=== PATIENT | female | born 1990 | race Caucasian/White ===

== ENCOUNTER 2022-11-17 11:21 | Emergency (ER) | payer OTHER, SELFPAY ==
--- NOTE | ~2022-11-17 | XR_ITS ---
EXAMINATION: XR CHEST CLINICAL INFORMATION: Cough and shortness of breath COMPARISON: None TECHNIQUE: 2 views of the chest were obtained. FINDINGS: Cardiac silhouette is normal in size. The lungs are well aerated. There is no lobar consolidation. No pleural effusion or pneumothorax. No acute osseous abnormality. XR/XR chest 2V IMPRESSION: No acute pulmonary pathology.
[2022-11-17 11:59] VITALS: BP 129/72; PULSE 97; RESP 20; TEMP 36.3; O2SAT 98; BMI 43.7
--- NOTE | 2022-11-17 12:01 | ED.ASTHMA ---
HPI - Asthma General Chief Complaint: Dyspnea <QUOC Langford Last Filed: 11/17/22 12:04> Stated Complaint: Difficulty breathing <QUOC Langford Last Filed: 11/17/22 12:04> Time Seen by Provider: 11/17/22 12:35 <QUOC Langford Last Filed: 11/17/22 12:04> History of Present Illness HPI Narrative: patient complains of runny nose, cough dry cough no sputum as well as asthma flare with wheezing several times over the last several days which was relieved with albuterol, when I saw her she had just had treatment provided here and had no shortness of breath <QUOC Liu Last Filed: 11/17/22 13:51> Related Data Home Medications: Previous Rx's Medication Instructions Recorded albuterol sulfate 90 mcg/actuation 2 puff inhalation Q4-6H PRN 11/17/22 aerosol inhaler shortness of breath or wheezing #8.5 grams prednisone 20 mg tablet 60 mg PO DAILY 4 days #12 tabs 11/17/22 <QUOC Langford Last Filed: 11/17/22 12:04> Allergies/Adverse Reactions: Allergies Allergy/AdvReac Type Severity Reaction Status Date / Time acetaminophen [From Percocet] Allergy Severe Rash Verified 11/17/22 12:03 oxycodone [From Percocet] Allergy Severe Rash Verified 11/17/22 12:03 <QUOC Langford Last Filed: 11/17/22 12:04> Review of Systems Review of Systems: positive for runny nose cough and wheezing Negatives are no fever no chills no dizziness or weakness no fainting no feeling faint no headache no sore throat no stiff neck no chest pain no shortness of breath at this moment no abdominal pain no nausea vomiting or diarrhea no calf pain or swelling no edema no skin rash <QUOC Liu Last Filed: 11/17/22 13:51> Yes all other systems are reviewed and are negative <QUOC Liu - Last Filed: 11/17/22 13:51> PMFSH Past Medical History Source: nursing notes reviewed <QUOC Liu Last Filed: 11/17/22 13:51> Social History Social History: Social History Advance Directives: No Advance Directives Information Provided: No <QUOC Langford - Last Filed: 11/17/22 12:04> Physical Exam Vital Signs: Vital Signs: Last Vital Signs Temp 97.4 F 11/17/22 11:59 Pulse 97 11/17/22 11:59 Resp 20 11/17/22 11:59 BP 129/72 11/17/22 11:59 Pulse Ox 98 11/17/22 11:59 O2 Del Method 11/17/22 11:59 BMI result Body Mass Index 43.7 <QUOC Langford - Last Filed: 11/17/22 12:04> Vital Signs: Last Vital Signs Temp 97.4 F 11/17/22 11:59 Pulse 97 11/17/22 11:59 Resp 20 11/17/22 11:59 BP 129/72 11/17/22 11:59 Pulse Ox 98 11/17/22 11:59 O2 Del Method 11/17/22 11:59 BMI result Body Mass Index 43.7 <QUOC Liu - Last Filed: 11/17/22 13:51> general appearance comfortable no acute distress Eyes no redness or discharge Pharynx no redness swelling or exudate membranes moist Neck is supple Chest clear to auscultation with full symmetric equal breath sounds bilaterally Heart no murmur Abdomen soft nontender Extremities no edema no calf tenderness or swelling Skin no rash <QUOC Liu - Last Filed: 11/17/22 13:51> Course Course Course Narrative: XU AVILA - 32-year-old female with past medical history of asthma currently residing at [facility] presenting to the ED with complaints of nasal congestion/rhinorrhea, cough with wheezing/chest tightness and shortness of breath that started yesterday. Reports that she thinks she has a sinus infection. Multiple sick contacts at the [facility] although she is unsure with what they are sick with. She denies any other symptoms related to this. She reports she will need and albuterol inhaler. Patient denies recent travel. Plan: COVID/RSV/flu swab and chest x-ray. Will order albuterol inhaler and 60 mg of p.o. prednisone. Patient is stable to go to [facility]. <QUOC Langford - Last Filed: 11/17/22 12:04> ALICIA- MARGARITA - 32-year-old female with past medical history of asthma currently residing at [facility] presenting to the ED with complaints of nasal congestion/rhinorrhea, cough with wheezing/chest tightness and shortness of breath that started yesterday. Reports that she thinks she has a sinus infection. Multiple sick contacts at the [facility] although she is unsure with what they are sick with. She denies any other symptoms related to this. She reports she will need and albuterol inhaler. Patient denies recent travel. Plan: COVID/RSV/flu swab and chest x-ray. Will order albuterol inhaler and 60 mg of p.o. prednisone. Patient is stable to go to [facility] The chest x-ray was normal, testing for RSV flu and COVID was negative Patient remained comfortable with no wheezing no shortness of breath throughout ER visit and was discharged. <QUOC Liu - Last Filed: 11/17/22 13:51> Medications Administered Discontinued Medications Generic Name Dose Route Start Last Admin Trade Name Freq PRN Reason Stop Dose Admin Albuterol Sulfate 2 puff 11/17/22 12:04 11/17/22 12:38 Albuterol Sulfate 90 Mcg 8 Gm Inhaler INHALE 11/17/22 12:05 2 puff ONCE ONE Administration Prednisone 60 mg 11/17/22 12:04 11/17/22 12:38 Prednisone 20 Mg Tablet PO 11/17/22 12:05 60 mg ONCE ONE Administration Prednisone 60 mg 11/17/22 12:46 11/17/22 13:12 Prednisone 20 Mg Tablet PO 11/17/22 12:47 Not Given ONCE ONE <QUOC Langford - Last Filed: 11/17/22 12:04> Medications Administered Discontinued Medications Generic Name Dose Route Start Last Admin Trade Name Freq PRN Reason Stop Dose Admin Albuterol Sulfate 2 puff 11/17/22 12:04 11/17/22 12:38 Albuterol Sulfate 90 Mcg 8 Gm Inhaler INHALE 11/17/22 12:05 2 puff ONCE ONE Administration Prednisone 60 mg 11/17/22 12:04 11/17/22 12:38 Prednisone 20 Mg Tablet PO 11/17/22 12:05 60 mg ONCE ONE Administration Prednisone 60 mg 11/17/22 12:46 11/17/22 13:12 Prednisone 20 Mg Tablet PO 11/17/22 12:47 Not Given ONCE ONE <QUOC Liu Last Filed: 11/17/22 13:51> Medical Decision Making Lab Data Labs: Lab Results 11/17/22 Range/Units 12:40 Influenza Type A (PCR) NEGATIVE (Negative) Influenza Type B (PCR) NEGATIVE (Negative) RSV RNA Qual (PCR) NEGATIVE (Negative) SARS-CoV-2 RNA (RT-PCR) NEGATIVE (Negative) <QUOC Langford Last Filed: 11/17/22 12:04> Lab Results 11/17/22 Range/Units 12:40 Influenza Type A (PCR) NEGATIVE (Negative) Influenza Type B (PCR) NEGATIVE (Negative) RSV RNA Qual (PCR) NEGATIVE (Negative) SARS-CoV-2 RNA (RT-PCR) NEGATIVE (Negative) <QUOC Liu Last Filed: 11/17/22 13:51> Discharge Plan Discharge Clinical Impression: Asthma, Acute upper respiratory infection <QUOC Langford Last Filed: 11/17/22 12:04> Patient Disposition: Home, Self-Care <QUOC Langford Last Filed: 11/17/22 12:04> Additional Instructions: testing for COVID flu and RSV was all negative, you likely have another of the many common viruses At this time your lungs were clear no sign of any dangerous condition now Use inhaler as needed for wheezing, we wrote for prednisone for your asthma as you been using her inhaler frequently for the past several days Return any time any difficulty breathing any worse condition any concerns <QUOC Langford Last Filed: 11/17/22 12:04> Prescriptions: New prednisone 20 mg tablet 60 mg PO DAILY 4 Days Qty: 12 0RF albuterol sulfate 90 mcg/actuation HFA aerosol inhaler 2 puff inhalation Q4-6H PRN (Reason: shortness of breath or wheezing) Qty: 8.5 0RF <QUOC Langford Last Filed: 11/17/22 12:04> Stand Alone Forms: Work/School Release <QUOC Langford Last Filed: 11/17/22 12:04>
[2022-11-17] MEDS: predniSONE 20 MG TABLET 60 MG PO (12:38)
[2022-11-17] MEDS: Albuterol Sulfate 90 MCG 8 GM INHALER 2 PUFF INHALE (12:38)
[2022-11-17 13:28] LABS: Influenza A PCR NEGATIVE (Negative); Influenza B PCR NEGATIVE (Negative); Resp Syncy Virus RNA Qual PCR NEGATIVE (Negative); SARS COV2 PCR INHOUSE NEGATIVE (Negative)
== END 2022-11-17 13:55 | disposition home or self-care (01) ==
PROVIDERS: Physician Assistant Medical; Emergency Provider Emergency Medicine
DX: J06.9 Acute upper respiratory infection, unspecified (principal); R06.02 Shortness of breath; R05.9 Cough, unspecified; J45.909 Unspecified asthma, uncomplicated; Z20.822 Contact with and (suspected) exposure to COVID-19
CPT/HCPCS: 0241U; 71046; 99283

== ENCOUNTER 2023-02-03 11:29 | Emergency (ER) | payer OTHER, SELFPAY ==
--- NOTE | ~2023-02-03 | XR_ITS ---
EXAMINATION: XR CHEST CLINICAL INFORMATION: Shortness of breath cough COMPARISON: Prior chest October 2022 TECHNIQUE: 2 views of the chest were obtained. FINDINGS: No significant abnormality is noted involving the heart, lungs, mediastinum, bony thorax or soft tissues. XR/XR chest 2V IMPRESSION: Unremarkable examination.
[2023-02-03 11:39] VITALS: BP 164/94; PULSE 100; RESP 20; TEMP 36.7; O2SAT 99; BMI 42.3
--- NOTE | 2023-02-03 11:39 | ED.SOB ---
HPI - SOB/Dyspnea General Chief Complaint: Dyspnea Stated Complaint: Diff breathing Time Seen by Provider: 02/03/23 14:03 Source: patient Mode of arrival: ambulatory Limitations: no limitations History of Present Illness HPI Narrative: 32 yo female with history of mild intermittent asthma who presents to the ER for evaluation of cough and SOB that started yesterday. She reports the shortness of breath is worse today. She is bringing up white phlegm. She states she is worried she has pneumonia because her roommate has pneumonia. She ran out of her inhaler for her asthma. She denies any fevers, chills, N/V/D, abdominal pain or chest pain. MD elicited complaint: shortness of breath and cough Pertinent past history: asthma Onset (ago): day(s) (1) Context: recent illness Timing: progressively worsening Severity: moderate Exacerbating factors: exertion and coughing Relieving factors: rest Known history of: asthma Associated symptoms: cough Treatment prior to arrival: none Related Data Home oxygen amount: none Previous Rx's Medication Instructions Recorded albuterol sulfate 90 mcg/actuation 2 puff inhalation Q4-6H PRN 11/17/22 aerosol inhaler shortness of breath or wheezing #8.5 grams prednisone 20 mg tablet 60 mg PO DAILY 4 days #12 tabs 11/17/22 albuterol sulfate 90 mcg/actuation 1 inh inhalation QID PRN shortness 02/03/23 aerosol inhaler of breath or wheezing #6.7 grams azithromycin 250 mg tablet See Rx Instructions PO .COMPLEX #6 02/03/23 (Zithromax Z-Evan) tabs benzonatate 100 mg capsule 100 mg PO TID PRN cough #20 caps 02/03/23 prednisone 20 mg tablet 40 mg PO DAILY #10 tabs 02/03/23 Allergies Allergy/AdvReac Type Severity Reaction Status Date / Time acetaminophen [From Percocet] Allergy Severe Rash Verified 11/17/22 12:03 oxycodone [From Percocet] Allergy Severe Rash Verified 11/17/22 12:03 Review of Systems Review of Systems: Yes all other systems are reviewed and are negative [facility] Social History Social History Advance Directives: No Advance Directives Information Provided: No Physical Exam Vital Signs: Vital Signs: Last Vital Signs Temp 98.1 F 02/03/23 11:39 Pulse 100 03/06/23 11:39 Resp 20 02/03/23 11:39 BP 164/94 H 02/03/23 11:39 Pulse Ox 99 02/03/23 11:39 O2 Del Method 02/03/23 11:39 BMI result Body Mass Index 42.3 Appearance: Alert. Oriented X3. No acute distress. Eyes: Pupils equal, round and reactive to light. ENT: Pharynx normal. Neck: Normal inspection. Neck supple. CVS: Normal heart rate and rhythm. Pulses normal. Respiratory: No respiratory distress. Breath sounds with inspiratory wheeze in left middle lung field Abdomen: Soft and nontender. +BS x4 Skin: Skin warm and dry. Normal skin color. Normal skin turgor. No rashes. Extremities: No lower extremity edema. No calf tenderness Neuro: Oriented X 3.Grossly normal, nonfocal Course Course Course Narrative: RME - 32 yo female with history of asthma presenting to the ER with SOB and coughing for the last 1 day, worse this morning. Roommate at home has pneumonia. No fevers but reports fatigue and not feeling well. Lungs are clear in triage with stable VS, SpO2 98% Plan: CXR and COVID swab Reevaluation(s) Reevaluation #1: CXR without PNA. COVID negative. VSS Will treat for acute bronchitis. Stable for d/c home. Medical Decision Making Differential Diagnosis Differential Diagnoses: The differential diagnosis associated with the presentation includes COVID, Flu, RSV, other viral syndrome, bronchitis, pneumonia, asthma exacerbation Lab Data MDM Lab Attestation statement: I reviewed the patient's lab results. Labs: Lab Results 02/03/23 Range/Units 13:36 COVID-19 (EVONNE) Negative (Negative) COVID-19 Clin Com See Note Independent Interpretation I performed an independent interpretation of an: Plain X-Ray Interpretation: normal exam - no pneumonia Radiology Impression Discussion of test interpretation with radiology: I have reviewed the radiologist's reading. Discharge Plan Discharge Clinical Impression: Acute bronchitis Patient Disposition: Home, Self-Care Instructions: Acute Bronchitis (ED) Additional Instructions: You tested negative for COVID Your x-ray showed no pneumonia Take the prescribed medications as directed. If you develop new or worsening symptoms call 911 or come back to the ER for further evaluation. Prescriptions: New azithromycin [Zithromax Z-Evan] 250 mg tablet See Rx Instructions .ROUTE .COMPLEX Qty: 6 0RF Rx Instructions: take 500 mg today (day 1), then 250 mg for 4 days (days 2-5) prednisone 20 mg tablet 40 mg PO DAILY Qty: 10 0RF albuterol sulfate 90 mcg/actuation HFA aerosol inhaler 1 inh inhalation QID PRN (Reason: shortness of breath or wheezing) Qty: 6.7 0RF benzonatate 100 mg capsule 100 mg PO TID PRN (Reason: cough) Qty: 20 0RF No Action prednisone 20 mg tablet 60 mg PO DAILY 4 Days Qty: 12 0RF albuterol sulfate 90 mcg/actuation HFA aerosol inhaler 2 puff inhalation Q4-6H PRN (Reason: shortness of breath or wheezing) Qty: 8.5 0RF Referrals: [place] [Primary Care Provider] - Stand Alone Forms: Work/School Release Interventions: ED Discharge Assessment Last Done: 02/03/23 14:08 Discharge Date/Time: 02/03/23 14:08
[2023-02-03 13:56] LABS: COVID-19 Test Negative (Negative); IDNOW Serial# 16C4AD1C
== END 2023-02-03 14:08 | disposition home or self-care (01) ==
PROVIDERS: Physician Assistant; Emergency Provider Emergency Medicine
DX: J20.9 Acute bronchitis, unspecified (principal); Z20.822 Contact with and (suspected) exposure to COVID-19; R06.02 Shortness of breath
CPT/HCPCS: 71046; 87635; 99282; 99283

== ENCOUNTER 2023-02-15 21:17 | Emergency (ER) | payer OTHER, SELFPAY ==
[2023-02-15 21:27] VITALS: BP 143/75; PULSE 80; RESP 16; TEMP 37; O2SAT 98
[2023-02-15 21:30] VITALS: BP 143/75; PULSE 80; RESP 16; TEMP 36; O2SAT 98; BMI 40.7
--- NOTE | 2023-02-15 22:07 | ED_ITS ---
HPI - Animal Bite General Chief Complaint: Animal Bite Stated Complaint: tick bite Time Seen by Provider: 02/15/23 22:07 Source: patient Mode of arrival: ambulatory Limitations: no limitations History of Present Illness HPI narrative: 32-year-old female who presents emergency department for evaluation of tick bite to the left posterior calf. Patient states she was hiking approximately 1 week prior. She states that over the last 1-2 days she has been having fatigue, myalgias and arthralgias. She states she has also been having headaches which are unusual for her. She states that her left foot started to get numb and she looked at her left calf today noted that there was a tick imbedded in her calf. She pulled the tick out but did not bring the tick to the emergency department. I did show her a tick panel and she initially identified the female deer tick but then she was not certain if it was the female dog tick. Related Data Previous Rx's Medication Instructions Recorded albuterol sulfate 90 mcg/actuation 2 puff inhalation Q4-6H PRN 11/17/22 aerosol inhaler shortness of breath or wheezing #8.5 grams prednisone 20 mg tablet 60 mg PO DAILY 4 days #12 tabs 11/17/22 albuterol sulfate 90 mcg/actuation 1 inh inhalation QID PRN shortness 02/03/23 aerosol inhaler of breath or wheezing #6.7 grams azithromycin 250 mg tablet See Rx Instructions PO .COMPLEX #6 02/03/23 (Zithromax Z-Evan) tabs benzonatate 100 mg capsule 100 mg PO TID PRN cough #20 caps 02/03/23 prednisone 20 mg tablet 40 mg PO DAILY #10 tabs 02/03/23 doxycycline hyclate 100 mg tablet 100 mg PO Q12H 14 days #28 tabs 02/15/23 Allergies Allergy/AdvReac Type Severity Reaction Status Date / Time oxycodone [From Percocet] Allergy Severe Rash Verified 02/15/23 21:30 Review of Systems Review of Systems: Yes all other systems are reviewed and are negative [facility] Past Medical History [facility] Narrative: Past medical history: Asthma. Social history: She denies tobacco, alcohol and drug use. Social History Social History Advance Directives: No Advance Directives Information Provided: No Physical Exam ED Vital Signs: Vital Signs - 24 hr 02/15/23 21:27 02/15/23 21:30 Temperature 98.6 F 96.8 F Pulse Rate 80 80 Respiratory Rate 16 16 Blood Pressure 143/75 H 143/75 H Pulse Oximetry 98 98 Oxygen Delivery Method Room Air Room Air BMI result Body Mass Index 40.7 General: Awake, alert, female patient, very pleasant cooperative, in no distress Evaluation of the patient's left calf does reveal a central area of dark erythema consistent with a tick bite/crater. There is approximately a 2 cm of circular erythema around the crater which is warm to the touch. Extremities otherwise unremarkable. Medications Administered Discontinued Medications Generic Name Dose Route Start Last Admin Trade Name Freq PRN Reason Stop Dose Admin Doxycycline Monohydrate 100 mg 02/15/23 22:17 02/15/23 22:24 Doxycycline Monohydrate 100 Mg Capsule PO 02/15/23 22:18 100 mg ONCE ONE Administration Medical Decision Making Medical Decision Making MDM Narrative: 32-year-old female who presents emergency department for evaluation of a tick bite. Based on her history, the tick may have been in bed and into her left calf for approximately 1 week. The patient did have systemic symptoms such as fatigue, myalgias, arthralgias and headache. She denied fever or chills. The patient initially identify the female deer tick but then was not certain and thought that may have been a female dog tick. Given the fact that she has had a tick imbedded for 1 week, she has systemic symptoms, concerned that she might have Lyme disease versus cellulitis. At this time, I do not think patient needs to be tested for Lyme disease or anaplasmosis since she is going to be treated with doxycycline. I prescribed doxycycline 100 mg every 12 hours for 14 days. She was given her 1st dose of doxycycline here in the emergency department. She was given printed and verbal instructions and discharged home. Differential Diagnosis Differential diagnosis includes was not limited to Lyme disease, cellulitis, anaplasmosis, viral syndrome Discharge Plan Discharge Clinical Impression: Cellulitis of left leg Tick bite Qualifiers: Encounter type: initial encounter Site of tick bite: lower leg Patient Disposition: Home, Self-Care Instructions: Cellulitis (ED), Tick Bite (ED) Additional Instructions: You do have a skin infection in the area of the tick bite. I am also concerned that she may have Lyme disease. The treatment for the skin infection and Lyme disease is the same except the course of antibiotics as longer for Lyme disease. Take doxycycline 100 mg pills, 1 pill every 12 hours for 14 days. Apply heating pad on low to your calf area for 15 minutes 4 to 6 times a day for the next 3 days. Heat will increase the blood flow to the area help fight off the infection. Take ibuprofen 200 mg pills, 2 pills every 6 hours as needed for pain. Take Tylenol (acetaminophen) 500 mg pills, 2 pills every 6 hours as needed for pain. Follow-up with your doctor in 2 days. Please return to the emergency department if your symptoms get worse or if you develop any symptoms that are concerning to you. Prescriptions: New doxycycline hyclate 100 mg tablet 100 mg PO Q12H 14 Days Qty: 28 0RF No Action azithromycin [Zithromax Z-Evan] 250 mg tablet See Rx Instructions .ROUTE .COMPLEX Qty: 6 0RF Rx Instructions: take 500 mg today (day 1), then 250 mg for 4 days (days 2-5) prednisone 20 mg tablet 40 mg PO DAILY Qty: 10 0RF albuterol sulfate 90 mcg/actuation HFA aerosol inhaler 1 inh inhalation QID PRN (Reason: shortness of breath or wheezing) Qty: 6.7 0RF benzonatate 100 mg capsule 100 mg PO TID PRN (Reason: cough) Qty: 20 0RF prednisone 20 mg tablet 60 mg PO DAILY 4 Days Qty: 12 0RF albuterol sulfate 90 mcg/actuation HFA aerosol inhaler 2 puff inhalation Q4-6H PRN (Reason: shortness of breath or wheezing) Qty: 8.5 0RF
[2023-02-15] MEDS: Doxycycline Monohydrate 100 MG CAPSULE PO (22:24)
== END 2023-02-15 22:35 | disposition home or self-care (01) ==
PROVIDERS: Emergency Provider Emergency Medicine Emergency Medical Services; PCP Internal Medicine
DX: L03.116 Cellulitis of left lower limb (principal); S80.862A Insect bite (nonvenomous), left lower leg, initial encounter; W57.XXXA Bitten or stung by nonvenomous insect and other nonvenomous arthropods, initial encounter; Y93.9 Activity, unspecified; Y92.9 Unspecified place or not applicable; Y99.9 Unspecified external cause status
CPT/HCPCS: 99282; 99283

== ENCOUNTER 2023-04-29 10:26 | Emergency (ER) | payer OTHER, SELFPAY ==
[2023-04-29 10:35] VITALS: BP 133/74; PULSE 98; RESP 16; TEMP 37.1; O2SAT 94; BMI 42.5
[2023-04-29 10:54] LABS: IDNOW Serial# 6674DD1D; Strep A Nucleic Acid Negative (Negative)
[2023-04-29] MEDS: Albuterol/Iprat 2.5/0.5MG 3 ML AMPUL.NEB INHALE (11:37)
[2023-04-29 11:42] VITALS: PULSE 98; RESP 16; O2SAT 94
[2023-04-29 11:58] LABS: MANUAL DIFF FLAG NO
[2023-04-29 12:00] LABS: Basophils Percent Auto 0.4 % (0-2); Eosinophils Absolute Auto 0.3 X10*3/uL (0.0-0.4); Eosinophils Percent Auto 2.5 % (0-4); Hematocrit 38.9 % (37.0-47.0); Hemoglobin 12.3 g/dl (12.0-16.0); Imm Gran Abs Auto 0.04 X10*3/uL (0.00-0.03); Imm Gran Pct Auto 0.4 % (0.0-0.4); Lymphocytes Percent Auto 28.2 % (20-40); Mean Corpuscular HGB Conc 31.6 g/dl (31.0-35.0); Mean Corpuscular Hemoglobin 27.1 pg (27.0-33.0); Mean Corpuscular Volume 85.7 fL (80.0-98.0); Mean Platelet Volume 9.7 fL (9.4-12.3); Monocytes Absolute Auto 0.6 X10*3/uL (0.1-1.2); Neutrophils Absolute Auto 6.6 x10*3/uL (2.0-8.3); Neutrophils Percent Auto 62.5 % (45-73); Platelet Count 320 X10*3/uL (160-400); Red Blood Count 4.54 X10*6/uL (4.20-5.50); Red Cell Distribution Width 14.6 % (11.0-16.0); White Blood Count 10.6 X10*3/uL (4.8-10.8)
[2023-04-29] MEDS: 0.9 % Sodium Chloride 1,000 ML 999 ML IVCONT (12:04)
[2023-04-29] MEDS: Acetaminophen 325 MG TABLET 975 MG PO (12:05)
[2023-04-29] MEDS: Ketorolac Tromethamine 30 MG/ML VIAL IVPUSH (12:05)
[2023-04-29] MEDS: dexAMETHasone sod phosphate 10 MG/ML VIAL IVPUSH (12:05)
[2023-04-29 13:00] LABS: Anion Gap 14 (12-20); Blood Urea Nitrogen 8 mg/dL (9-16); Calcium 9.5 mg/dL (8.4-10.2); Carbon Dioxide 25 mmol/L (22-29); Chloride 109 mmol/L (96-108); Creatinine Clr Calc Pharmacy 136.5; Estimated Glomerular Filt Rate > 60; Glucose Random 88 mg/dL (60-115); Potassium 4.1 mmol/L (3.3-5.1); Sodium 144 mmol/L (135-145)
[2023-04-29 13:01] LABS: Monotest Negative (Negative)
--- NOTE | 2023-04-29 13:43 | ED.URI ---
HPI - URI/Sore Throat General Chief Complaint: Upper Respiratory Symptoms Stated Complaint: Sore throat Time Seen by Provider: 04/29/23 11:25 History of Present Illness HPI Narrative: patient complains of sore throat over the fast few days making it painful to swallow but she was able to swallow as well as some wheezing for past 2 days and feeling of chest tightness She has no headache no stiff neck no chest pain no sputum no cough, no abdominal pain no nausea vomiting or diarrhea no dysuria no leg swelling no calf pain or swelling no skin rash Related Data Previous Rx's Medication Instructions Recorded albuterol sulfate 90 mcg/actuation 2 puff inhalation Q4-6H PRN 11/17/22 aerosol inhaler shortness of breath or wheezing #8.5 grams prednisone 20 mg tablet 60 mg PO DAILY 4 days #12 tabs 11/17/22 albuterol sulfate 90 mcg/actuation 1 inh inhalation QID PRN shortness 02/03/23 aerosol inhaler of breath or wheezing #6.7 grams azithromycin 250 mg tablet See Rx Instructions PO .COMPLEX #6 02/03/23 (Zithromax Z-Evan) tabs benzonatate 100 mg capsule 100 mg PO TID PRN cough #20 caps 02/03/23 prednisone 20 mg tablet 40 mg PO DAILY #10 tabs 02/03/23 doxycycline hyclate 100 mg tablet 100 mg PO Q12H 14 days #28 tabs 02/15/23 albuterol sulfate 90 mcg/actuation 2 puff inhalation Q4-6H PRN 04/29/23 aerosol inhaler shortness of breath or wheezing #8.5 grams ibuprofen 600 mg tablet 600 mg PO Q6H PRN fever or pain 04/29/23 #20 tabs penicillin V potassium 500 mg 500 mg PO BID 10 days #20 tabs 04/29/23 tablet prednisone 20 mg tablet 60 mg PO DAILY 4 days #12 tabs 04/29/23 Allergies Allergy/AdvReac Type Severity Reaction Status Date / Time oxycodone [From Percocet] Allergy Severe Rash Verified 02/15/23 21:30 [facility] Past Medical History Source: nursing notes reviewed Social History Social History Advance Directives: No Advance Directives Information Provided: No Physical Exam Vital Signs: Vital Signs: Last Vital Signs Temp 98.7 F 04/29/23 10:35 Pulse 98 04/29/23 11:42 Resp 16 04/29/23 11:42 BP 133/74 04/29/23 10:35 Pulse Ox 94 04/29/23 10:35 O2 Del Method Room Air 04/29/23 10:35 BMI result Body Mass Index 42.5 General appearance is no acute distress Eyes no redness or discharge The sinuses not tender The pharynx had redness bilateral symmetric tonsillar swelling with exudate, uvula was midline, voice was hoarse, membranes were mildly dry Neck was supple Chest had bilateral scant wheezes but good air entry Heart no murmur Abdomen soft nontender Extremities no edema no calf tenderness or swelling Skin no rash Course Course Course Narrative: patient was given a L of fluids Decadron and Toradol as well as a nebulizer treatment for her wheezing Her breathing felt much better and she feels like she is breathing normally She has no throat pain any more and is easily tolerating p.o., well-appearing patient with out throat pain or wheezing, tolerating p.o. easily breathing comfortably is discharged CBC and chemistry were checked without significant abnormality, COVID test was negative Medications Administered Discontinued Medications Generic Name Dose Route Start Last Admin Trade Name Freq PRN Reason Stop Dose Admin Acetaminophen 975 mg 04/29/23 11:33 04/29/23 12:05 Acetaminophen 325 Mg Tablet PO 04/29/23 11:34 975 mg ONCE ONE Administration Albuterol/Ipratropium 3 ml 04/29/23 11:32 04/29/23 11:37 Albuterol/Iprat 2.5/0.5mg 3 Ml Ampul.Neb INHALE 04/29/23 11:33 3 ml ONCE ONE Administration Dexamethasone Sodium Phosphate 10 mg 04/29/23 11:33 04/29/23 12:05 Dexamethasone Sod Phosphate 10 Mg/Ml Vial IVPUSH 04/29/23 11:34 10 mg ONCE ONE Administration Sodium Chloride 1,000 mls @ 999 mls/hr 04/29/23 11:45 04/29/23 13:53 Ns IVCONT 04/29/23 12:45 Infused .Q1H1M YOSHI Infusion Ketorolac Tromethamine 30 mg 04/29/23 11:33 04/29/23 12:05 Ketorolac Tromethamine 30 Mg/Ml Vial IVPUSH 04/29/23 11:34 30 mg ONCE ONE Administration Medical Decision Making Lab Data 04/29/23 11:54 04/29/23 12:30 Labs: Lab Results 04/29/23 04/29/23 04/29/23 Range/Units 10:38 11:54 12:30 WBC 10.6 (4.8-10.8) X10*3/uL RBC 4.54 (4.20-5.50) X10*6/uL Hgb 12.3 (12.0-16.0) g/dl Hct 38.9 (37.0-47.0) % MCV 85.7 (80.0-98.0) fL MCH 27.1 (27.0-33.0) pg MCHC 31.6 (31.0-35.0) g/dl RDW 14.6 (11.0-16.0) % Plt Count 320 (160-400) X10*3/uL MPV 9.7 (9.4-12.3) fL Immature Gran % (Auto) 0.4 (0.0-0.4) % Neut % (Auto) 62.5 (45-73) % Lymph % (Auto) 28.2 (20-40) % [place] % (Auto) 6.0 (2-11) % Eos % (Auto) 2.5 (0-4) % Baso % (Auto) 0.4 (0-2) % Lymph # (Auto) 3.0 (1.2-4.9) X10*3/uL [place] # (Auto) 0.6 (0.1-1.2) X10*3/uL Eos # (Auto) 0.3 (0.0-0.4) X10*3/uL Baso # (Auto) 0.0 (0.0-0.2) X10*3/uL Abs Immat Gran (auto) 0.04 H (0.00-0.03) X10*3/uL Absolute Neuts (auto) 6.6 (2.0-8.3) x10*3/uL Absolute Nucleated RBC 0.000 (0.0-0.012) X10*3/uL Nucleated RBC % (auto) 0.0 (0.0-0.2) /100WBC Sodium (135-145) mmol/L Potassium (3.3-5.1) mmol/L Chloride (96-108) mmol/L Carbon Dioxide (22-29) mmol/L Anion Gap (12-20) BUN (9-16) mg/dL Creatinine (0.5-1.4) mg/dL Estim Creat Clear Calc Estimated GFR Random Glucose (60-115) mg/dL Calcium (8.4-10.2) mg/dL Monoscreen Negative (Negative) S. pyogenes GrpA KATHLEEN Negative (Negative) 04/29/23 Range/Units 12:30 WBC (4.8-10.8) X10*3/uL RBC (4.20-5.50) X10*6/uL Hgb (12.0-16.0) g/dl Hct (37.0-47.0) % MCV (80.0-98.0) fL MCH (27.0-33.0) pg MCHC (31.0-35.0) g/dl RDW (11.0-16.0) % Plt Count (160-400) X10*3/uL MPV (9.4-12.3) fL Immature Gran % (Auto) (0.0-0.4) % Neut % (Auto) (45-73) % Lymph % (Auto) (20-40) % [place] % (Auto) (2-11) % Eos % (Auto) (0-4) % Baso % (Auto) (0-2) % Lymph # (Auto) (1.2-4.9) X10*3/uL [place] # (Auto) (0.1-1.2) X10*3/uL Eos # (Auto) (0.0-0.4) X10*3/uL Baso # (Auto) (0.0-0.2) X10*3/uL Abs Immat Gran (auto) (0.00-0.03) X10*3/uL Absolute Neuts (auto) (2.0-8.3) x10*3/uL Absolute Nucleated RBC (0.0-0.012) X10*3/uL Nucleated RBC % (auto) (0.0-0.2) /100WBC Sodium 144 (135-145) mmol/L Potassium 4.1 (3.3-5.1) mmol/L Chloride 109 H (96-108) mmol/L Carbon Dioxide 25 (22-29) mmol/L Anion Gap 14 (12-20) BUN 8 L (9-16) mg/dL Creatinine 0.70 (0.5-1.4) mg/dL Estim Creat Clear Calc 136.5 Estimated GFR > 60 Random Glucose 88 (60-115) mg/dL Calcium 9.5 (8.4-10.2) mg/dL Monoscreen (Negative) S. pyogenes GrpA KATHLEEN (Negative) Discharge Plan Discharge Clinical Impression: Pharyngitis Patient Disposition: Home, Self-Care Additional Instructions: testing was negative for strep and mono But as your throat has the appearance of strep throat if symptoms are not gone with the treatment you received today it is okay to take penicillin for possibility that the test missed strep throat We treated her wheezing with albuterol and wheezing was gone so we are treating the asthma with prednisone for several more days and a prescription for an inhaler Return any time any worse condition or concerns, make sure you stay well hydrated drink plenty of fluids, honey and warm fluids are often helpful Prescriptions: New albuterol sulfate 90 mcg/actuation HFA aerosol inhaler 2 puff inhalation Q4-6H PRN (Reason: shortness of breath or wheezing) Qty: 8.5 0RF prednisone 20 mg tablet 60 mg PO DAILY 4 Days Qty: 12 0RF penicillin V potassium 500 mg tablet 500 mg PO BID 10 Days Qty: 20 0RF ibuprofen 600 mg tablet 600 mg PO Q6H PRN (Reason: fever or pain) Qty: 20 0RF No Action azithromycin [Zithromax Z-Evan] 250 mg tablet See Rx Instructions .ROUTE .COMPLEX Qty: 6 0RF Rx Instructions: take 500 mg today (day 1), then 250 mg for 4 days (days 2-5) prednisone 20 mg tablet 40 mg PO DAILY Qty: 10 0RF albuterol sulfate 90 mcg/actuation HFA aerosol inhaler 1 inh inhalation QID PRN (Reason: shortness of breath or wheezing) Qty: 6.7 0RF benzonatate 100 mg capsule 100 mg PO TID PRN (Reason: cough) Qty: 20 0RF prednisone 20 mg tablet 60 mg PO DAILY 4 Days Qty: 12 0RF albuterol sulfate 90 mcg/actuation HFA aerosol inhaler 2 puff inhalation Q4-6H PRN (Reason: shortness of breath or wheezing) Qty: 8.5 0RF doxycycline hyclate 100 mg tablet 100 mg PO Q12H 14 Days Qty: 28 0RF Interventions: ED Discharge Assessment Last Done: 04/29/23 13:53 Discharge Date/Time: 04/29/23 13:59
--- NOTE | 2023-04-29 13:53 | PC.NURSE ---
pt a&ox4, vss, reporting reduction in pain.
== END 2023-04-29 13:59 | disposition home or self-care (01) ==
PROVIDERS: Physician Assistant Medical; Emergency Provider Emergency Medicine
DX: J02.9 Acute pharyngitis, unspecified (principal); R06.2 Wheezing
CPT/HCPCS: 36415; 80048; 85025; 86308; 87651; 96361; 96374; 96375; 99284; J1100; J1885

== ENCOUNTER 2023-06-19 16:08 | Emergency (ER) | payer OTHER, SELFPAY ==
--- NOTE | ~2023-06-19 | XR_ITS ---
EXAMINATION: XR FINGER, RIGHT CLINICAL INFORMATION: Right palm pain COMPARISON: None available. TECHNIQUE: 3 views of the right: thumb. FINDINGS: The bones and soft tissues are normal. No fracture. Alignment is anatomic. Joint spaces are maintained. XR/XR finger RT min 2V IMPRESSION: Normal finger radiographs.
[2023-06-19 16:32] VITALS: BP 117/77; PULSE 78; RESP 18; TEMP 36.6; O2SAT 98; BMI 43.1
--- NOTE | 2023-06-19 16:58 | ED_ITS ---
HPI - General Adult General Chief complaint: Wound/Laceration Stated complaint: Laceration to right thumb 2 days ago Time Seen by Provider: 06/19/23 17:53 Source: patient Mode of arrival: ambulatory Limitations: no limitations History of Present Illness HPI narrative: 32-year-old female presenting to the ER with complaints of a laceration while she was slicing potatoes 2 days ago with a mandoline and she unfortunately lacerated her finger Along with the distal aspect of her nail. She reports she is unsure if she is up-to-date on tetanus. She denies any bony tenderness, thoughts of foreign bodies, surrounding erythema, redness going up her arm, weakness or any other symptoms complaints or concerns at this time. complaint: Old laceration to right 1st digit /thumb Onset (ago): day(s) (2) Related Data Previous Rx's Medication Instructions Recorded albuterol sulfate 90 mcg/actuation 2 puff inhalation Q4-6H PRN 11/17/22 aerosol inhaler shortness of breath or wheezing #8.5 grams prednisone 20 mg tablet 60 mg PO DAILY 4 days #12 tabs 11/17/22 albuterol sulfate 90 mcg/actuation 1 inh inhalation QID PRN shortness 02/03/23 aerosol inhaler of breath or wheezing #6.7 grams azithromycin 250 mg tablet See Rx Instructions PO .COMPLEX #6 02/03/23 (Zithromax Z-Evan) tabs benzonatate 100 mg capsule 100 mg PO TID PRN cough #20 caps 02/03/23 prednisone 20 mg tablet 40 mg PO DAILY #10 tabs 02/03/23 doxycycline hyclate 100 mg tablet 100 mg PO Q12H 14 days #28 tabs 02/15/23 albuterol sulfate 90 mcg/actuation 2 puff inhalation Q4-6H PRN 04/29/23 aerosol inhaler shortness of breath or wheezing #8.5 grams ibuprofen 600 mg tablet 600 mg PO Q6H PRN fever or pain 04/29/23 #20 tabs penicillin V potassium 500 mg 500 mg PO BID 10 days #20 tabs 04/29/23 tablet prednisone 20 mg tablet 60 mg PO DAILY 4 days #12 tabs 04/29/23 Allergies Allergy/AdvReac Type Severity Reaction Status Date / Time oxycodone [From Percocet] Allergy Severe Rash Verified 06/19/23 16:32 Review of Systems Review of Systems: Constitutional : No Fever, No Chills, Cardiovascular : No Chest Pain, No SOB Respiratory : No Dyspnea Gastrointestinal : No abdominal pain Musculoskeletal : No Joint Swelling Skin : positive skin laceration, No Foreign bodies, No rash, No surrounding erythema Neuro : No Weakness, No Numbness/tingling Psych : No SI/HI/thoughts of self injury Yes all other systems are reviewed and are negative [facility] Past Medical History Attestation statement: The following information was validated with the patient. Source: old records reviewed and nursing notes reviewed Social History Social History Advance Directives: No Advance Directives Information Provided: Yes Physical Exam ED Vital Signs: Vital Signs - 24 hr 06/19/23 16:32 Temperature 97.8 F Pulse Rate 78 Respiratory Rate 18 Blood Pressure 117/77 Pulse Oximetry 98 Oxygen Delivery Method Room Air BMI result Body Mass Index 43.1 vital signs have been reviewed as normal and appeared to be correct. Blood pressure normal. Heart rate normal. Respiration rate normal. Temperature normal. Oxygen saturation normal. Appearance: Alert. Oriented X3. No acute distress. Head: Normal external exam. Normocephalic. Atraumatic. Eyes: PERRLA. EOMI. Conjunctiva and sclera normal. Eyelids normal. ENT: Pharynx normal. Uvula midline. Moist mucous membranes. Normal voice. No trismus noted. No drooling noted. No muffled voice noted. Neck: Normal inspection. Neck supple. FROM. No adenopathy. No crepitus is noted. No meningeal signs. CVS: Normal heart rate and rhythm. Pulses normal throughout. Respiratory: No respiratory distress. Painless inspiration. Back: Full range of motion noted. Skin: Skin warm and dry. Normal skin color. Normal skin turgor. No rashes/lesions/lacerations noted. Extremities: right hand thumb/ 1st digit at the distal aspect near the distal aspect of the nail radial aspect patient has an old laceration with well-healing scab. No surrounding erythema /streaking/ induration or fluctuance. No subungual hematoma noted. No obvious ligamentous or tendon injury noted. No obvious nerve damage. Otherwise all of Extremities exhibit normal range of motion and nontender. Neuro: Oriented X 3. No motor deficit. No sensory deficit. Reflexes normal. Normal steady gait. No focal neuro deficits noted. CN's II-XII intact bilaterally? Vascular: + radial pulses Normal cap refill. No cyanosis noted to upper extremity nails Course Course Course Narrative: This is an RME: Additional HPI, ROS, PE not included below will be deferred to primary provider. This is a 32 [id number] presenting to the Er with complaints of laceration to her right thumb on a mandolin 2 days ago. No fevers or chills. She banged her thumb again today. Admitting pain and decreased sensation to the tip of her right thumb. Unsure last tdap. Appears to be healing. Plan: Right thumb xray Reevaluation(s) Reevaluation #1: patient with no laceration to right hand 1st digit/ thumb that occurred 2 days ago. She is unsure if she is up-to-date on tetanus therefore will be updated at this time. On exam there is a well-healing scab no surrounding erythema. Not consistent with septic joint. Not consistent with tenosynovitis. Not consistent with obvious ligamentous or tendon injury. Not consistent muscle rupture. The injury does not involve the nail bed. Therefore will update the patient's tetanus at this time patient will be discharged with instructions return if any new or worsening symptoms follow up with primary care provider. Patient understands agrees with this plan. Time: 18:23 Medical Decision Making Medical Decision Making MDM Narrative: see course Differential Diagnosis Differential Diagnoses: The differential diagnosis associated with the presentation includes see course Independent Interpretation I performed an independent interpretation of an: Plain X-Ray ( X-ray of right hand reviewed by myself this is my independent interpretation agreeable with radiologist reports) Radiology Impression Discussion of test interpretation with radiology: I have reviewed the radiologist's reading. Radiologist Impression: FINDINGS: The bones and soft tissues are normal. No fracture. Alignment is anatomic. Joint spaces are maintained.? XR/XR finger RT min 2V IMPRESSION: Normal finger radiographs. External Record Review External record reviewed: Inpatient record, Office record, Outpatient record, Prior outpatient labs, Prior outpatient radiology, Primary care record and Outside ED record all prior labs/imaging /EKG and knows that are accessible in our system reviewed by myself Social Determinants Patient?s care significantly limited by Social Determinants of Health including: Low income and Other Social Determinant of Health Discharge Plan Discharge Clinical Impression: Laceration of finger Patient Disposition: Home, Self-Care Instructions: Finger Laceration (ED) Prescriptions: No Action azithromycin [Zithromax Z-Evan] 250 mg tablet See Rx Instructions .ROUTE .COMPLEX Qty: 6 0RF Rx Instructions: take 500 mg today (day 1), then 250 mg for 4 days (days 2-5) prednisone 20 mg tablet 40 mg PO DAILY Qty: 10 0RF albuterol sulfate 90 mcg/actuation HFA aerosol inhaler 1 inh inhalation QID PRN (Reason: shortness of breath or wheezing) Qty: 6.7 0RF benzonatate 100 mg capsule 100 mg PO TID PRN (Reason: cough) Qty: 20 0RF prednisone 20 mg tablet 60 mg PO DAILY 4 Days Qty: 12 0RF albuterol sulfate 90 mcg/actuation HFA aerosol inhaler 2 puff inhalation Q4-6H PRN (Reason: shortness of breath or wheezing) Qty: 8.5 0RF doxycycline hyclate 100 mg tablet 100 mg PO Q12H 14 Days Qty: 28 0RF albuterol sulfate 90 mcg/actuation HFA aerosol inhaler 2 puff inhalation Q4-6H PRN (Reason: shortness of breath or wheezing) Qty: 8.5 0RF prednisone 20 mg tablet 60 mg PO DAILY 4 Days Qty: 12 0RF penicillin V potassium 500 mg tablet 500 mg PO BID 10 Days Qty: 20 0RF ibuprofen 600 mg tablet 600 mg PO Q6H PRN (Reason: fever or pain) Qty: 20 0RF Referrals: Po,Dell Madrigal MD [Primary Care Provider] - 2 days
[2023-06-19] MEDS: Diphth,Pertus(ACell),Tet Adult 0.5 ML SYRINGE IM (18:29)
== END 2023-06-19 18:39 | disposition home or self-care (01) ==
PROVIDERS: Emergency Provider Emergency Medicine; PCP Internal Medicine
DX: S61.111A Laceration without foreign body of right thumb with damage to nail, initial encounter (principal); W26.0XXA Contact with knife, initial encounter; Y93.G1 Activity, food preparation and clean up; Y92.010 Kitchen of single-family (private) house as the place of occurrence of the external cause; Y99.9 Unspecified external cause status
CPT/HCPCS: 73140; 90471; 90715; 99282; 99284

== ENCOUNTER 2023-07-07 18:06 | Inpatient (IN) | payer OTHER, SELFPAY ==
--- NOTE | 2023-07-07 18:15 | ECG_ITS ---
Test Reason : medical clearance Blood Pressure : / mmHG Vent. Rate : 075 BPM Atrial Rate : 075 BPM P-R Int : 128 ms QRS Dur : 082 ms QT Int : 384 ms P-R-T Axes : 051 085 026 degrees QTc Int : 428 ms Normal sinus rhythm with sinus arrhythmia Normal ECG No previous ECGs available Referred By: Lisa Caldwell Electronically Signed By:Vinicio Rucker
[2023-07-07 18:31] VITALS: RESP 18; BMI 42.5
[2023-07-07 18:40] VITALS: BP 117/68; PULSE 88; RESP 18; TEMP 36.3; O2SAT 96
--- NOTE | 2023-07-07 18:41 | PC.NURSE ---
Alert and oriented, arrived from resident treatment home that patient has been at for 1 year. 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 Reports has been depressed and was started on abilify about 1 week ago and started having thoughts of SI yesterday. States having intrusive thoughts about stepping out into traffic to end her life. States had similar thought 1 year ago. Denies HI.
--- NOTE | 2023-07-07 18:54 | ED_ITS ---
HPI - Psych General Chief Complaint: Psychiatric Symptoms Stated Complaint: SI WITH PLAN Time Seen by Provider: 07/07/23 18:19 Source: patient Mode of arrival: ambulatory Limitations: no limitations History of Present Illness HPI Narrative: Patient with history of depression came from his attention facility for in creased depression with SI feeling noncompliant to her medication which she was taking in the morning. History of suicidal attempts in the past+ Related Data Home Medications Medication Instructions Recorded Confirmed aripiprazole 2 mg tablet 2 mg PO DAILY 07/07/23 07/07/23 hydroxyzine HCl 25 mg tablet 25 mg PO TID PRN Anxiety 07/07/23 07/07/23 oxcarbazepine 150 mg tablet 150 mg PO BID 07/07/23 07/07/23 prazosin 2 mg capsule 2 mg PO BEDTIME 07/07/23 07/07/23 sertraline 25 mg tablet 25 mg PO BEDTIME 07/07/23 07/07/23 trazodone 100 mg tablet 100 mg PO BEDTIME 07/07/23 07/07/23 Previous Rx's Medication Instructions Recorded albuterol sulfate 90 mcg/actuation 2 puff inhalation Q4-6H PRN 04/29/23 aerosol inhaler shortness of breath or wheezing #8.5 grams Allergies Allergy/AdvReac Type Severity Reaction Status Date / Time oxycodone [From Percocet] Allergy Severe Rash Verified 06/19/23 16:32 gluten Allergy Rash Verified 07/07/23 19:16 Review of Systems Review of Systems: Yes all other systems are reviewed and are negative [facility] Social History Social History Alcohol intake: former Smoked in Last 30 Days: No Use of substances other than those prescribed or required for medical reasons: No Advance Directives: No Advance Directives Information Provided: No Physical Exam Vital Signs: Vital Signs: Last Vital Signs Temp 98.2 F 07/08/23 01:01 Pulse 73 07/08/23 01:01 Resp 17 07/08/23 01:01 BP 99/54 L 07/08/23 01:01 Pulse Ox 98 07/08/23 01:01 O2 Del Method Room Air 07/08/23 01:01 BMI result Body Mass Index 42.5 Appearance: Alert. Oriented X3. No acute distress. Eyes: PERRLA, No Nystagmus ENT: Pharynx normal. Oral Mucosa moist Neck: Normal inspection. Neck supple. CVS: Normal heart rate and rhythm. Pulses normal. Respiratory: No respiratory distress. Equal air entry bilateral, no wheezing/rales/rhonchi Abdomen: Soft and nontender. Bowel sounds are present, no mass palpable, no CVA tenderness Skin: Skin warm and dry. Normal skin color. Normal skin turgor. Extremities: No lower extremity edema. No calf tenderness psych: Depressed denies current SI or HI no hallucinations or delusion Neuro: Oriented X 3. No motor deficit. No sensory deficit.No cerebellar signs , cranial nerves II-XII intact Medical Decision Making Medical Decision Making MDM Narrative: Patient has significant depression SI feeling get care team to evaluate the patient Lab Data 07/07/23 20:56 07/07/23 17:15 Labs: Lab Results 07/07/23 07/07/23 07/07/23 Range/Units 17:15 17:15 19:17 WBC (4.8-10.8) X10*3/uL RBC (4.20-5.50) X10*6/uL Hgb (12.0-16.0) g/dl Hct (37.0-47.0) % MCV (80.0-98.0) fL MCH (27.0-33.0) pg MCHC (31.0-35.0) g/dl RDW (11.0-16.0) % Plt Count (160-400) X10*3/uL MPV (9.4-12.3) fL Immature Gran % (Auto) (0.0-0.4) % Neut % (Auto) (45-73) % Lymph % (Auto) (20-40) % [place] % (Auto) (2-11) % Eos % (Auto) (0-4) % Baso % (Auto) (0-2) % Lymph # (Auto) (1.2-4.9) X10*3/uL [place] # (Auto) (0.1-1.2) X10*3/uL Eos # (Auto) (0.0-0.4) X10*3/uL Baso # (Auto) (0.0-0.2) X10*3/uL Abs Immat Gran (auto) (0.00-0.03) X10*3/uL Absolute Neuts (auto) (2.0-8.3) x10*3/uL Absolute Nucleated RBC (0.0-0.012) X10*3/uL Nucleated RBC % (auto) (0.0-0.2) /100WBC Sodium 142 (135-145) mmol/L Potassium 4.5 (3.3-5.1) mmol/L Chloride 108 (96-108) mmol/L Carbon Dioxide 22 (22-29) mmol/L Anion Gap 17 (12-20) BUN 9 (9-16) mg/dL Creatinine 0.70 (0.5-1.4) mg/dL Estim Creat Clear Calc 135.2 Estimated GFR > 60 Random Glucose 127 H (60-115) mg/dL Calcium 9.1 (8.4-10.2) mg/dL Total Bilirubin 0.1 (0.0-1.0) mg/dL AST 20 (5-31) U/L ALT 16 (0-31) U/L Alkaline Phosphatase 101 (39-117) U/L Total Protein 7.2 (6.5-8.0) g/dL Albumin 4.1 (3.5-5.0) g/dL Urine Color Urine Appearance Urine pH (5.0-9.0) Ur Specific [place] (1.005-1.025) Urine Protein (Neg-Trace) mg/dL Urine Glucose (UA) (Negative) mg/dL Urine Ketones (Negative) mg/dL Urine Blood (Negative) Urine Nitrite (Negative) Ur Leukocyte Esterase (Negative) Urine Test NEGATIVE (NEGATIVE) Salicylates (15-30) mg/dL Urine Opiates Screen (Not Detect) Urine Fentanyl Screen (Not Detect) Acetaminophen (<30) mcg/mL Ur Barbiturates Screen (Not Detect) Ur Phencyclidine Scrn (Not Detect) Ur Amphetamines Screen (Not Detect) U Benzodiazepines Scrn (Not Detect) Urine Cocaine Screen (Not Detect) U Marijuana (THC) Screen (Not Detect) Ethyl Alcohol < 10 mg/dL COVID-19 (EVONNE) Negative (Negative) COVID-19 Clin Com See Note 07/07/23 07/07/23 07/07/23 Range/Units 19:42 19:42 20:56 WBC 9.3 (4.8-10.8) X10*3/uL RBC 4.70 (4.20-5.50) X10*6/uL Hgb 12.7 (12.0-16.0) g/dl Hct 39.8 (37.0-47.0) % MCV 84.7 (80.0-98.0) fL MCH 27.0 (27.0-33.0) pg MCHC 31.9 (31.0-35.0) g/dl RDW 13.8 (11.0-16.0) % Plt Count 298 (160-400) X10*3/uL MPV 8.9 L (9.4-12.3) fL Immature Gran % (Auto) 0.3 (0.0-0.4) % Neut % (Auto) 51.3 (45-73) % Lymph % (Auto) 39.2 (20-40) % [place] % (Auto) 6.5 (2-11) % Eos % (Auto) 2.2 (0-4) % Baso % (Auto) 0.5 (0-2) % Lymph # (Auto) 3.6 (1.2-4.9) X10*3/uL [place] # (Auto) 0.6 (0.1-1.2) X10*3/uL Eos # (Auto) 0.2 (0.0-0.4) X10*3/uL Baso # (Auto) 0.1 (0.0-0.2) X10*3/uL Abs Immat Gran (auto) 0.03 (0.00-0.03) X10*3/uL Absolute Neuts (auto) 4.8 (2.0-8.3) x10*3/uL Absolute Nucleated RBC 0.000 (0.0-0.012) X10*3/uL Nucleated RBC % (auto) 0.0 (0.0-0.2) /100WBC Sodium (135-145) mmol/L Potassium (3.3-5.1) mmol/L Chloride (96-108) mmol/L Carbon Dioxide (22-29) mmol/L Anion Gap (12-20) BUN (9-16) mg/dL Creatinine (0.5-1.4) mg/dL Estim Creat Clear Calc Estimated GFR Random Glucose (60-115) mg/dL Calcium (8.4-10.2) mg/dL Total Bilirubin (0.0-1.0) mg/dL AST (5-31) U/L ALT (0-31) U/L Alkaline Phosphatase (39-117) U/L Total Protein (6.5-8.0) g/dL Albumin (3.5-5.0) g/dL Urine Color Yellow Urine Appearance Clear Urine pH 7.0 (5.0-9.0) Ur Specific [place] >= 1.030 H (1.005-1.025) Urine Protein Negative (Neg-Trace) mg/dL Urine Glucose (UA) 100 H (Negative) mg/dL Urine Ketones Trace (Negative) mg/dL Urine Blood Negative (Negative) Urine Nitrite Negative (Negative) Ur Leukocyte Esterase Negative (Negative) Urine Test (NEGATIVE) Salicylates (15-30) mg/dL Urine Opiates Screen Not Detected (Not Detect) Urine Fentanyl Screen Not Detected (Not Detect) Acetaminophen (<30) mcg/mL Ur Barbiturates Screen Not Detected (Not Detect) Ur Phencyclidine Scrn Not Detected (Not Detect) Ur Amphetamines Screen Not Detected (Not Detect) U Benzodiazepines Scrn Not Detected (Not Detect) Urine Cocaine Screen Not Detected (Not Detect) U Marijuana (THC) Screen Not Detected (Not Detect) Ethyl Alcohol mg/dL COVID-19 ([facility]ONNE) (Negative) COVID-19 Clin Com 07/07/23 Range/Units 20:56 WBC (4.8-10.8) X10*3/uL RBC (4.20-5.50) X10*6/uL Hgb (12.0-16.0) g/dl Hct (37.0-47.0) % MCV (80.0-98.0) fL MCH (27.0-33.0) pg MCHC (31.0-35.0) g/dl RDW (11.0-16.0) % Plt Count (160-400) X10*3/uL MPV (9.4-12.3) fL Immature Gran % (Auto) (0.0-0.4) % Neut % (Auto) (45-73) % Lymph % (Auto) (20-40) % [place] % (Auto) (2-11) % Eos % (Auto) (0-4) % Baso % (Auto) (0-2) % Lymph # (Auto) (1.2-4.9) X10*3/uL [place] # (Auto) (0.1-1.2) X10*3/uL Eos # (Auto) (0.0-0.4) X10*3/uL Baso # (Auto) (0.0-0.2) X10*3/uL Abs Immat Gran (auto) (0.00-0.03) X10*3/uL Absolute Neuts (auto) (2.0-8.3) x10*3/uL Absolute Nucleated RBC (0.0-0.012) X10*3/uL Nucleated RBC % (auto) (0.0-0.2) /100WBC Sodium (135-145) mmol/L Potassium (3.3-5.1) mmol/L Chloride (96-108) mmol/L Carbon Dioxide (22-29) mmol/L Anion Gap (12-20) BUN (9-16) mg/dL Creatinine (0.5-1.4) mg/dL Estim Creat Clear Calc Estimated GFR Random Glucose (60-115) mg/dL Calcium (8.4-10.2) mg/dL Total Bilirubin (0.0-1.0) mg/dL AST (5-31) U/L ALT (0-31) U/L Alkaline Phosphatase (39-117) U/L Total Protein (6.5-8.0) g/dL Albumin (3.5-5.0) g/dL Urine Color Urine Appearance Urine pH (5.0-9.0) Ur Specific [place] (1.005-1.025) Urine Protein (Neg-Trace) mg/dL Urine Glucose (UA) (Negative) mg/dL Urine Ketones (Negative) mg/dL Urine Blood (Negative) Urine Nitrite (Negative) Ur Leukocyte Esterase (Negative) Urine Test (NEGATIVE) Salicylates < 5.0 L (15-30) mg/dL Urine Opiates Screen (Not Detect) Urine Fentanyl Screen (Not Detect) Acetaminophen < 17 (<30) mcg/mL Ur Barbiturates Screen (Not Detect) Ur Phencyclidine Scrn (Not Detect) Ur Amphetamines Screen (Not Detect) U Benzodiazepines Scrn (Not Detect) Urine Cocaine Screen (Not Detect) U Marijuana (THC) Screen (Not Detect) Ethyl Alcohol mg/dL COVID-19 ([facility]ONNE) (Negative) COVID-19 Clin Com Discharge Plan Discharge Clinical Impression: Depression with suicidal ideation Patient Disposition: Still a Patient Prescriptions: No Action albuterol sulfate 90 mcg/actuation HFA aerosol inhaler 2 puff inhalation Q4-6H PRN (Reason: shortness of breath or wheezing) Qty: 8.5 0RF aripiprazole 2 mg tablet 2 mg PO DAILY oxcarbazepine 150 mg tablet 150 mg PO BID trazodone 100 mg tablet 100 mg PO BEDTIME sertraline 25 mg tablet 25 mg PO BEDTIME hydroxyzine HCl 25 mg tablet 25 mg PO TID PRN (Reason: Anxiety) prazosin 2 mg capsule 2 mg PO BEDTIME Interventions: [place]-Suicide Risk Severity Scale Last Done: 07/07/23 18:33
[2023-07-07 19:52] LABS: COVID-19 Test Negative (Negative); IDNOW Serial# BCCEAD1C
[2023-07-07 19:54] LABS: Alanine Aminotransferase 16 U/L (0-31); Albumin Level 4.1 g/dL (3.5-5.0); Alkaline Phosphatase 101 U/L (39-117); Anion Gap 17 (12-20); Aspartate Amino Transferase 20 U/L (5-31); Bilirubin Total 0.1 mg/dL (0.0-1.0); Blood Urea Nitrogen 9 mg/dL (9-16); Calcium 9.1 mg/dL (8.4-10.2); Carbon Dioxide 22 mmol/L (22-29); Chloride 108 mmol/L (96-108); Creatinine Clr Calc Pharmacy 135.2; Estimated Glomerular Filt Rate > 60; Ethanol < 10 mg/dL; Glucose Random 127 mg/dL (60-115); Potassium 4.5 mmol/L (3.3-5.1); Sodium 142 mmol/L (135-145); Total Protein 7.2 g/dL (6.5-8.0)
[2023-07-07 20:04] LABS: Appearance Urine Clear; Color Urine Yellow; Glucose Urine UA 100 mg/dL (Negative); Leukocyte Esterase Urine Negative (Negative); Nitrite Urine Negative (Negative); Specific Gravity - Urine >= 1.030 (1.005-1.025); Urine Blood Negative (Negative); Urine Ketones Trace mg/dL (Negative); Urine Protein Negative (Neg-Trace)
[2023-07-07 20:05] LABS: Urine Pregnancy NEGATIVE (NEGATIVE)
[2023-07-07 20:06] LABS: UPreg QC Valid YES
[2023-07-07 20:13] LABS: Amphetamine Screen Urine Not Detected (Not Detect); Barbiturates, Urine Not Detected (Not Detect); Benzodiazepines Screen Urine Not Detected (Not Detect); Cannabinoid Screen Urine Not Detected (Not Detect); Cocaine Screen Urine Not Detected (Not Detect); Fentanyl, urine Not Detected (Not Detect); Opiate Screen Urine Not Detected (Not Detect); Phencyclidine Screen Urine Not Detected (Not Detect)
[2023-07-07 21:04] LABS: MANUAL DIFF FLAG NO
[2023-07-07 21:05] LABS: Basophils Absolute Auto 0.1 X10*3/uL (0.0-0.2); Basophils Percent Auto 0.5 % (0-2); Eosinophils Absolute Auto 0.2 X10*3/uL (0.0-0.4); Eosinophils Percent Auto 2.2 % (0-4); Hematocrit 39.8 % (37.0-47.0); Hemoglobin 12.7 g/dl (12.0-16.0); Imm Gran Abs Auto 0.03 X10*3/uL (0.00-0.03); Imm Gran Pct Auto 0.3 % (0.0-0.4); Lymphocytes Absolute Auto 3.6 X10*3/uL (1.2-4.9); Lymphocytes Percent Auto 39.2 % (20-40); Mean Corpuscular HGB Conc 31.9 g/dl (31.0-35.0); Mean Corpuscular Volume 84.7 fL (80.0-98.0); Mean Platelet Volume 8.9 fL (9.4-12.3); Monocytes Absolute Auto 0.6 X10*3/uL (0.1-1.2); Monocytes Percent Auto 6.5 % (2-11); Neutrophils Absolute Auto 4.8 x10*3/uL (2.0-8.3); Neutrophils Percent Auto 51.3 % (45-73); Platelet Count 298 X10*3/uL (160-400); Red Cell Distribution Width 13.8 % (11.0-16.0); White Blood Count 9.3 X10*3/uL (4.8-10.8)
[2023-07-07 21:27] LABS: Salicylate < 5.0 mg/dL (15-30)
[2023-07-07 21:47] LABS: Acetaminophen LAB < 17 mcg/mL (<30)
[2023-07-08 01:01] VITALS: BP 99/54; PULSE 73; RESP 17; TEMP 36.8; O2SAT 98
--- NOTE | 2023-07-08 05:22 | PC.NURSE ---
Patient slept through the night, no distress observed/reported, med rec completed/pending provider's approval, care consult ordered for increased depression with suicidal ideation, pending evaluation, patient believes that change her mental status is due to recent medication changed, VSS, labs completed/resulted, behavior non concerning, VSS, will continue to monitor.
[2023-07-08 09:27] VITALS: BP 128/79; PULSE 86; RESP 16; TEMP 36.1; O2SAT 99
--- NOTE | 2023-07-08 15:31 | PHA.MEDREC ---
Pharmacy Consult ? Medication Reconciliation Pharmacy has reviewed the medication reconciliation completed by Ezequiel.
--- NOTE | 2023-07-08 15:35 | MHC.CARE ---
patient is pending acceptance to psychiatric unit at [facility].
[2023-07-08 18:34] VITALS: BP 151/86; PULSE 96; RESP 18; TEMP 36.4; O2SAT 98
[2023-07-08 18:35] VITALS: BMI 43.3
[2023-07-08] MEDS: Prazosin HCL 1 MG CAPSULE 2 MG PO (20:27)
[2023-07-08] MEDS: Sertraline HCL 25 MG TABLET PO (20:27)
[2023-07-08] MEDS: OXcarbazepine 150 MG TABLET PO (20:27)
[2023-07-08] MEDS: traZODone HCL 100 MG TABLET PO (20:27)
--- NOTE | 2023-07-09 00:22 | PC.ADMIT ---
Kimberly arrived to the unit at 1725, on a conditional voluntary. Sharps check done by contract technical writer and another RN. Kimberly was clam and pleasant, reported having SI thoughts and dreams, It started when they took me off the Abilify, they just took me off instead of tapering the medication. She reports feeling depressed and Not myself. When asked if she had any thoughts of wanting to hurt self stated No, verbalized to look for staff if thoughts occur.
[2023-07-09 06:00] VITALS: BP 122/78; PULSE 91; RESP 18; TEMP 36.5; O2SAT 98
[2023-07-09] MEDS: OXcarbazepine 150 MG TABLET PO ×2 (09:09→20:03)
[2023-07-09] MEDS: ARIPiprazole 2 MG TABLET PO (09:09)
[2023-07-09 09:45] LABS: Estimated Average Glucose 103 mg/dL; Hemoglobin A1c % 5.2 %
[2023-07-09 10:02] LABS: Cholesterol 230 mg/dL; HDL Cholesterol 36 mg/dL; LDL Cholesterol Calculated 121 mg/dl; Magnesium 2.2 mg/dL (1.6-2.6); Triglycerides 368 mg/dL
[2023-07-09 10:12] LABS: Free T4 (Free Thyroxine) 0.91 ng/dL (0.71-1.85); Thyroid Stimulating Hormone 2.76 uIU/mL (0.32-4.0)
[2023-07-09 11:02] LABS: Vitamin B12 372 pg/mL (200-900)
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
[2023-07-09] MEDS: Nicotine Polacrilex Lozenge 4 MG LOZENGE BUCCAL (16:58)
[2023-07-09 18:00] VITALS: BP 139/77; PULSE 89; RESP 18; TEMP 36.3; O2SAT 96
[2023-07-09 19:50] VITALS: BP 128/77; PULSE 94; TEMP 36.2
[2023-07-09] MEDS: Prazosin HCL 1 MG CAPSULE 2 MG PO (20:03)
[2023-07-09] MEDS: hydrOXYzine HCL 25 MG TABLET PO (20:03)
[2023-07-09] MEDS: traZODone HCL 100 MG TABLET PO (20:03)
[2023-07-09] MEDS: Sertraline HCL 25 MG TABLET PO (20:03)
[2023-07-10 07:00] VITALS: BMI 43.4
[2023-07-10 08:10] VITALS: BP 112/68; PULSE 88; RESP 18; TEMP 36.7; O2SAT 95
[2023-07-10] MEDS: OXcarbazepine 150 MG TABLET PO ×2 (08:49→20:58)
[2023-07-10] MEDS: ARIPiprazole 2 MG TABLET PO (08:49)
--- NOTE | 2023-07-10 13:03 | P.PNPSI_ITS ---
Subjective Subjective Date of Service: 07/10/23 Reason For Visit: Recurrent major depression,SI,EToh use d/o,Cannabi Subjective Notes: Conditional Voluntary Healthcare Proxy: No Guardianship: No Medical Problems Affecting Mental Status: No Interim History: Awaiting [facility] records. Pt discussed wanting to have her own apartment when [place] is completed. She would like to apply for a service dog. Discussed resources to search for housing. Med review. Will increase Sertraline to 50 mg daily and re-start Wellbutrin at 75 mg daily (was titrated quickly up to 450 mg). Medication Compliance: Yes Side effects from medications: Yes Attending Groups: Yes Review of Systems Acute medical concerns: No Medical Review of Systems: unchanged Mental Status Exam Mental Status Exam Patient Appearance: Fatigued and Appropriate Patient Orientation: Person, Place, Time and Situation Level of Consciousness: Alert Patient Behavior: Talkative and Good Eye Contact Mood Description: Depressed and Anxious Affect Description: Anxious Patient Cognition Impaired: No Ability to Follow Directions: Good Speech Pattern: Spontaneous Speech Memory Description: Intact Hallucinations: Visual Delusions: Not Present Perceptual Disturbances: Depersonalization and Derealization Thought Process: Rumination Thought Content: positive for Perseveration and positive for Suicidal Ideation Depressive Symptoms: Increased Anxiety, Loss of Int. in Activity, Hopelessness, Unhappiness and Difficulty Concentrating Judgement: Fair Diagnostics Vital Signs (24Hr): Vital Signs - 24 hr 07/09/23 18:00 07/09/23 19:50 07/10/23 08:10 Temperature 97.3 F 97.1 F 98.0 F Pulse Rate 89 94 88 Respiratory Rate 18 18 Blood Pressure 139/77 128/77 112/68 Pulse Oximetry 96 95 Oxygen Delivery Method Room Air Room Air BMI result Body Mass Index 43.4 Labs 07/07/23 20:56 07/07/23 17:15 Labs: Laboratory Results - last 48 hr 07/09/23 07/09/23 07/09/23 08:45 08:45 08:46 Estimat Average Glucose 103 Hemoglobin A1c % 5.2 Magnesium 2.2 Triglycerides 368 Cholesterol 230 LDL Cholesterol, Calc 121 HDL Cholesterol 36 Vitamin B12 372 Folate 9.0 TSH 2.76 Free T4 0.91 Medications Medications Current Medications Acetaminophen (Acetaminophen 325 Mg Tablet) 650 mg PO Q6H PRN PRN Reason: Headache/Pain Mild Scale (1-3) Al Hydroxide/Mg Hydroxide (Magnesium Hydrox/Alum Hydrox 30 Ml Oral.Susp) 30 ml PO Q6H PRN PRN Reason: Heartburn/Nausea Albuterol Sulfate (Albuterol Sulfate 90 Mcg 8 Gm Inhaler) 2 puff INHALE Q4H PRN PRN Reason: shortness of breath or wheezing Aripiprazole (Aripiprazole 2 Mg Tablet) 2 mg PO DAILY [facility] Last Admin: 07/10/23 08:49 Dose: 2 mg Bisacodyl (Bisacodyl 5 Mg Tablet.Dr) 10 mg PO DAILY PRN PRN Reason: Constipation Docusate Sodium (Docusate Sodium 100 Mg Capsule) 100 mg PO BID [facility] Hydroxyzine HCl (Hydroxyzine Hcl 25 Mg Tablet) 25 mg PO TID PRN PRN Reason: Anxiety Last Admin: 07/09/23 20:03 Dose: 25 mg Magnesium Hydroxide (Milk Of Magnesia 30 Ml Oral.Susp) 30 ml PO DAILY PRN PRN Reason: Constipation Nicotine Polacrilex (Nicotine Polacrilex Lozenge 4 Mg Lozenge) 4 mg BUCCAL Q2H PRN PRN Reason: Nicotine Cravings Last Admin: 07/09/23 16:58 Dose: 4 mg Oxcarbazepine (Oxcarbazepine 150 Mg Tablet) 150 mg PO BID [facility] Last Admin: 07/10/23 08:49 Dose: 150 mg Prazosin HCl (Prazosin Hcl 1 Mg Capsule) 2 mg PO BEDTIME [facility]; Protocol Last Admin: 07/09/23 20:03 Dose: 2 mg Senna (Sennosides 8.6 Mg Tablet) 17.2 mg PO BEDTIME [facility] Sertraline HCl (Sertraline Hcl 25 Mg Tablet) 25 mg PO BEDTIME [facility] Last Admin: 07/09/23 20:03 Dose: 25 mg Trazodone HCl (Trazodone Hcl 100 Mg Tablet) 100 mg PO BEDTIME [facility] Last Admin: 07/09/23 20:03 Dose: 100 mg Trazodone HCl (Trazodone Hcl 50 Mg Tablet) 50 mg PO BEDTIME MRX1 PRN PRN Reason: Insomnia Allergies Allergies Allergy/AdvReac Type Severity Reaction Status Date / Time oxycodone [From Percocet] Allergy Severe Rash Verified 06/19/23 16:32 Assessment & Plan Assessment & Plan (1) Depression with suicidal ideation: Status: Acute Code(s): F32.A - Depression, unspecified; R45.851 - Suicidal ideations (2) Alcohol use disorder in remission: Status: Acute Code(s): F10.91 - Alcohol use, unspecified, in remission (3) Autism spectrum disorder: Status: Acute Code(s): F84.0 - Autistic disorder (4) PTSD (post-traumatic stress disorder): Status: Acute Code(s): F43.10 - Post-traumatic stress disorder, unspecified Plan 33 yo female, hx of recurrent major depression, severe, r/o bipolar disorder, PTSD, autism spectrum disorder, possible ADHD, alcohol use disorder in remission. Pt comes from a residential program where she will complete a year in August. She had a recent medicine change and believes this increased her SI/intensity of sx. She presents to have her regime re-established and stabilized. Plan: BRENDEN for [facility] sent as pt does not recall what trials she has had to make medication changes. Full milieu encouraged Collect residential resources for pt to explore Coping skills work Aftercare/OP planning 07/10/23 Increase Sertraline to 50 mg daily Wellbutrin 75 mg a.m. Patient educated on: medication risk/benefits and therapeutic strategies Informed Consent: understands Reason for continued inpatient stay Substantial Risk for: rapid decompensation Time Spent With Patient Time: Total time managing care of this patient today ____ minutes.
[2023-07-10 18:00] VITALS: BP 143/71; PULSE 101; RESP 16; TEMP 36.4; O2SAT 97
[2023-07-10] MEDS: Prazosin HCL 1 MG CAPSULE 2 MG PO (20:58)
[2023-07-10] MEDS: Docusate Sodium 100 MG CAPSULE PO (20:58)
[2023-07-10] MEDS: Sertraline HCL 50 MG TABLET PO (20:58)
[2023-07-10] MEDS: traZODone HCL 100 MG TABLET PO (20:59)
[2023-07-10] MEDS: Sennosides 8.6 MG TABLET 17.2 MG PO (20:59)
[2023-07-11 06:00] VITALS: BP 138/66; PULSE 68; RESP 18; TEMP 36.7; O2SAT 98
[2023-07-11] MEDS: OXcarbazepine 150 MG TABLET PO ×2 (08:37→21:03)
[2023-07-11] MEDS: Docusate Sodium 100 MG CAPSULE PO ×2 (08:37→21:03)
[2023-07-11] MEDS: buPROPion HCL 75 MG TABLET PO (08:37)
[2023-07-11] MEDS: ARIPiprazole 2 MG TABLET PO (08:37)
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
[2023-07-11 18:00] VITALS: BP 157/70; PULSE 95; RESP 18; TEMP 36.9; O2SAT 95
[2023-07-11] MEDS: Sertraline HCL 50 MG TABLET PO (21:03)
[2023-07-11] MEDS: Sennosides 8.6 MG TABLET 17.2 MG PO (21:03)
[2023-07-11] MEDS: hydrOXYzine HCL 25 MG TABLET PO (21:03)
[2023-07-11] MEDS: Prazosin HCL 1 MG CAPSULE 2 MG PO (21:03)
[2023-07-11] MEDS: traZODone HCL 100 MG TABLET PO (21:03)
[2023-07-12 08:00] VITALS: BP 115/81; PULSE 95; RESP 18; TEMP 36.1; O2SAT 95
[2023-07-12] MEDS: ARIPiprazole 2 MG TABLET PO (08:27)
[2023-07-12] MEDS: Docusate Sodium 100 MG CAPSULE PO ×2 (08:28→20:55)
[2023-07-12] MEDS: buPROPion HCL 75 MG TABLET PO (08:28)
[2023-07-12] MEDS: OXcarbazepine 150 MG TABLET PO ×2 (08:28→20:55)
--- NOTE | 2023-07-12 13:45 | P.PNPSI_ITS ---
Subjective Subjective Date of Service: 07/12/23 Reason For Visit: Recurrent major depression,SI,EToh use d/o,Cannabi Subjective Notes: Conditional Voluntary Healthcare Proxy: No Guardianship: No Medical Problems Affecting Mental Status: No Interim History: Pt .anxious depressed Medication Compliance: Yes Side effects from medications: No Attending Groups: Yes Review of Systems Acute medical concerns: No Medical Review of Systems: unchanged Mental Status Exam Mental Status Exam Patient Appearance: Fatigued and Appropriate Patient Orientation: Person, Place, Time and Situation Level of Consciousness: Alert Patient Behavior: Talkative and Good Eye Contact Mood Description: Depressed and Anxious Affect Description: Anxious Patient Cognition Impaired: No Ability to Follow Directions: Good Speech Pattern: Spontaneous Speech Memory Description: Intact Hallucinations: Visual Delusions: Not Present Perceptual Disturbances: Depersonalization and Derealization Thought Process: Rumination Thought Content: positive for Perseveration and positive for Suicidal Ideation Depressive Symptoms: Increased Anxiety, Loss of Int. in Activity, Hopelessness, Unhappiness and Difficulty Concentrating Judgement: Fair Diagnostics Vital Signs (24Hr): Vital Signs - 24 hr 07/11/23 18:00 07/12/23 08:00 Temperature 98.4 F 97.0 F Pulse Rate 95 95 Respiratory Rate 18 18 Blood Pressure 157/70 H 115/81 Pulse Oximetry 95 95 Oxygen Delivery Method Room Air Room Air BMI result Body Mass Index 43.4 Labs 07/07/23 20:56 07/07/23 17:15 Medications Medications Current Medications Acetaminophen (Acetaminophen 325 Mg Tablet) 650 mg PO Q6H PRN PRN Reason: Headache/Pain Mild Scale (1-3) Al Hydroxide/Mg Hydroxide (Magnesium Hydrox/Alum Hydrox 30 Ml Oral.Susp) 30 ml PO Q6H PRN PRN Reason: Heartburn/Nausea Albuterol Sulfate (Albuterol Sulfate 90 Mcg 8 Gm Inhaler) 2 puff INHALE Q4H PRN PRN Reason: shortness of breath or wheezing Aripiprazole (Aripiprazole 2 Mg Tablet) 2 mg PO DAILY REPLACED BY [facility] Last Admin: 07/12/23 08:27 Dose: 2 mg Bisacodyl (Bisacodyl 5 Mg Tablet.Dr) 10 mg PO DAILY PRN PRN Reason: Constipation Bupropion HCl (Bupropion Hcl 75 Mg Tablet) 75 mg PO DAILY [facility]PL[facility] Last Admin: 07/12/23 08:28 Dose: 75 mg Docusate Sodium (Docusate Sodium 100 Mg Capsule) 100 mg PO BID [facility] Last Admin: 07/12/23 08:28 Dose: 100 mg Hydroxyzine HCl (Hydroxyzine Hcl 25 Mg Tablet) 25 mg PO TID PRN PRN Reason: Anxiety Last Admin: 07/11/23 21:03 Dose: 25 mg Magnesium Hydroxide (Milk Of Magnesia 30 Ml Oral.Susp) 30 ml PO DAILY PRN PRN Reason: Constipation Nicotine Polacrilex (Nicotine Polacrilex Lozenge 4 Mg Lozenge) 4 mg BUCCAL Q2H PRN PRN Reason: Nicotine Cravings Last Admin: 07/09/23 16:58 Dose: 4 mg Oxcarbazepine (Oxcarbazepine 150 Mg Tablet) 150 mg PO BID [facility] Last Admin: 07/12/23 08:28 Dose: 150 mg Prazosin HCl (Prazosin Hcl 1 Mg Capsule) 2 mg PO BEDTIME [facility]; Protocol Last Admin: 07/11/23 21:03 Dose: 2 mg Senna (Sennosides 8.6 Mg Tablet) 17.2 mg PO BEDTIME [facility] Last Admin: 07/11/23 21:03 Dose: 17.2 mg Sertraline HCl (Sertraline Hcl 50 Mg Tablet) 50 mg PO BEDTIME [facility] Last Admin: 07/11/23 21:03 Dose: 50 mg Trazodone HCl (Trazodone Hcl 100 Mg Tablet) 100 mg PO BEDTIME [facility] Last Admin: 07/11/23 21:03 Dose: 100 mg Trazodone HCl (Trazodone Hcl 50 Mg Tablet) 50 mg PO BEDTIME MRX1 PRN PRN Reason: Insomnia Allergies Allergies Allergy/AdvReac Type Severity Reaction Status Date / Time oxycodone [From Percocet] Allergy Severe Rash Verified 06/19/23 16:32 Assessment & Plan Assessment & Plan (1) Depression with suicidal ideation: Status: Acute Code(s): F32.A - Depression, unspecified; R45.851 - Suicidal ideations (2) Alcohol use disorder in remission: Status: Acute Code(s): F10.91 - Alcohol use, unspecified, in remission (3) Autism spectrum disorder: Status: Acute Code(s): F84.0 - Autistic disorder (4) PTSD (post-traumatic stress disorder): Status: Acute Code(s): F43.10 - Post-traumatic stress disorder, unspecified Plan 33 yo female, hx of recurrent major depression, severe, r/o bipolar disorder, PTSD, autism spectrum disorder, possible ADHD, alcohol use disorder in remission. Pt comes from a residential program where she will complete a year in August. She had a recent medicine change and believes this increased her SI/ intensity of sx. She presents to have her regime re-established and stabilized. Plan: BRENDEN for [facility] sent as pt does not recall what trials she has had to make medication changes. Full milieu encouraged Collect residential resources for pt to explore Coping skills work Aftercare/OP planning 07/10/23 Increase Sertraline to 50 mg daily Wellbutrin 75 mg a.m. 07/11/23 Continue current regime and plan of care Later in the day, received DC Summary from [place]- Trials included Prazosin, T rileptal, Wellbutrin, Trazodone, Vistaril, Melatonin. 07/12/23 cont plan of care abilify wellbutrin Reason for continued inpatient stay Substantial Risk for: harm to self and rapid decompensation Time Spent With Patient Time: Total time managing care of this patient today ____ minutes.
[2023-07-12 16:33] VITALS: BP 114/66; PULSE 97; TEMP 36.2; O2SAT 96
[2023-07-12] MEDS: traZODone HCL 50 MG TABLET PO (20:55)
[2023-07-12] MEDS: Sertraline HCL 50 MG TABLET PO (20:55)
[2023-07-12] MEDS: Prazosin HCL 1 MG CAPSULE 2 MG PO (20:55)
[2023-07-12] MEDS: traZODone HCL 100 MG TABLET PO (20:55)
[2023-07-12] MEDS: Sennosides 8.6 MG TABLET 17.2 MG PO (20:55)
[2023-07-12] MEDS: hydrOXYzine HCL 25 MG TABLET PO (20:55)
[2023-07-13 08:05] VITALS: BP 119/59; PULSE 90; RESP 18; TEMP 36.3; O2SAT 96
[2023-07-13] MEDS: ARIPiprazole 2 MG TABLET PO (08:12)
[2023-07-13] MEDS: buPROPion HCL 75 MG TABLET PO (08:12)
[2023-07-13] MEDS: Docusate Sodium 100 MG CAPSULE PO ×2 (08:13→19:40)
[2023-07-13] MEDS: OXcarbazepine 150 MG TABLET PO ×2 (08:13→19:39)
[2023-07-13 19:00] VITALS: BP 129/71; PULSE 100; RESP 18; TEMP 36.3; O2SAT 96
[2023-07-13] MEDS: Sennosides 8.6 MG TABLET 17.2 MG PO (19:39)
[2023-07-13] MEDS: Sertraline HCL 50 MG TABLET PO (19:39)
[2023-07-13] MEDS: traZODone HCL 100 MG TABLET PO (19:40)
[2023-07-13] MEDS: Prazosin HCL 1 MG CAPSULE 2 MG PO (19:40)
--- NOTE | 2023-07-14 00:16 | HO.PSYCHPN ---
Subjective Subjective Date of Service: 07/13/23 Reason For Visit: Recurrent major depression,SI,EToh use d/o,Cannabi Subjective Notes: Conditional Voluntary Healthcare Proxy: No Guardianship: No Medical Problems Affecting Mental Status: No Interim History: Pt .anxious depressed ruminating. Able to describe her anxiety in concerns and difficulties dealing with autism. Discussed intrusive thoughts at times of self-harm states safe in this setting Does describe ongoing difficulties with dissociation and history of trauma and lack of treatment and strategies to deal with this Medication Compliance: Yes Side effects from medications: No Attending Groups: Yes Review of Systems Acute medical concerns: No Medical Review of Systems: unchanged Mental Status Exam Mental Status Exam Patient Appearance: Fatigued and Appropriate Patient Orientation: Person, Place, Time and Situation Level of Consciousness: Alert Patient Behavior: Talkative and Good Eye Contact Mood Description: Depressed, Anxious and Blunted Affect Description: Anxious Patient Cognition Impaired: No Ability to Follow Directions: Good Speech Pattern: Spontaneous Speech Memory Description: Intact Hallucinations: Visual Delusions: Not Present Perceptual Disturbances: Depersonalization and Derealization Thought Process: Rumination Thought Content: positive for Perseveration and positive for Suicidal Ideation Depressive Symptoms: Increased Anxiety, Loss of Int. in Activity, Hopelessness, Unhappiness and Difficulty Concentrating Judgement: Fair Diagnostics Vital Signs (24Hr): Vital Signs - 24 hr 07/13/23 08:05 07/13/23 19:00 Temperature 97.4 F 97.4 F Pulse Rate 90 100 Respiratory Rate 18 18 Blood Pressure 119/59 L 129/71 Pulse Oximetry 96 96 Oxygen Delivery Method Room Air Room Air BMI result Body Mass Index 43.4 Labs 07/07/23 20:56 07/07/23 17:15 Medications Medications Current Medications Acetaminophen (Acetaminophen 325 Mg Tablet) 650 mg PO Q6H PRN PRN Reason: Headache/Pain Mild Scale (1-3) Al Hydroxide/Mg Hydroxide (Magnesium Hydrox/Alum Hydrox 30 Ml Oral.Susp) 30 ml PO Q6H PRN PRN Reason: Heartburn/Nausea Albuterol Sulfate (Albuterol Sulfate 90 Mcg 8 Gm Inhaler) 2 puff INHALE Q4H PRN PRN Reason: shortness of breath or wheezing Aripiprazole (Aripiprazole 2 Mg Tablet) 2 mg PO DAILY [facility] Last Admin: 07/13/23 08:12 Dose: 2 mg Bisacodyl (Bisacodyl 5 Mg Tablet.Dr) 10 mg PO DAILY PRN PRN Reason: Constipation Bupropion HCl (Bupropion Hcl 75 Mg Tablet) 75 mg PO DAILY [facility] Last Admin: 07/13/23 08:12 Dose: 75 mg Docusate Sodium (Docusate Sodium 100 Mg Capsule) 100 mg PO BID [facility] Last Admin: 07/13/23 19:40 Dose: 100 mg Hydroxyzine HCl (Hydroxyzine Hcl 25 Mg Tablet) 25 mg PO TID PRN PRN Reason: Anxiety Last Admin: 07/12/23 20:55 Dose: 25 mg Magnesium Hydroxide (Milk Of Magnesia 30 Ml Oral.Susp) 30 ml PO DAILY PRN PRN Reason: Constipation Nicotine Polacrilex (Nicotine Polacrilex Lozenge 4 Mg Lozenge) 4 mg BUCCAL Q2H PRN PRN Reason: Nicotine Cravings Last Admin: 07/09/23 16:58 Dose: 4 mg Oxcarbazepine (Oxcarbazepine 150 Mg Tablet) 150 mg PO BID [facility] Last Admin: 07/13/23 19:39 Dose: 150 mg Prazosin HCl (Prazosin Hcl 1 Mg Capsule) 2 mg PO BEDTIME [facility]; Protocol Last Admin: 07/13/23 19:40 Dose: 2 mg Senna (Sennosides 8.6 Mg Tablet) 17.2 mg PO BEDTIME [facility] Last Admin: 07/13/23 19:39 Dose: 17.2 mg Sertraline HCl (Sertraline Hcl 50 Mg Tablet) 50 mg PO BEDTIME [facility] Last Admin: 07/13/23 19:39 Dose: 50 mg Trazodone HCl (Trazodone Hcl 100 Mg Tablet) 100 mg PO BEDTIME [facility] Last Admin: 07/13/23 19:40 Dose: 100 mg Trazodone HCl (Trazodone Hcl 50 Mg Tablet) 50 mg PO BEDTIME MRX1 PRN PRN Reason: Insomnia Last Admin: 07/12/23 20:55 Dose: 50 mg Allergies Allergies Allergy/AdvReac Type Severity Reaction Status Date / Time oxycodone [From Percocet] Allergy Severe Rash Verified 06/19/23 16:32 Assessment & Plan Assessment & Plan (1) Depression with suicidal ideation: Status: Acute Code(s): F32.A - Depression, unspecified; R45.851 - Suicidal ideations (2) Alcohol use disorder in remission: Status: Acute Code(s): F10.91 - Alcohol use, unspecified, in remission (3) Autism spectrum disorder: Status: Acute Code(s): F84.0 - Autistic disorder (4) PTSD (post-traumatic stress disorder): Status: Acute Code(s): F43.10 - Post-traumatic stress disorder, unspecified Plan 33 yo female, hx of recurrent major depression, severe, r/o bipolar disorder, PTSD, autism spectrum disorder, possible ADHD, alcohol use disorder in remission. Pt comes from a residential program where she will complete a year in August. She had a recent medicine change and believes this increased her SI/intensity of sx. She presents to have her regime re-established and stabilized. Plan: BRENDEN for [facility] sent as pt does not recall what trials she has had to make medication changes. Full milieu encouraged Collect residential resources for pt to explore Coping skills work Aftercare/OP planning 07/10/23 Increase Sertraline to 50 mg daily Wellbutrin 75 mg a.m. 07/11/23 Continue current regime and plan of care Later in the day, received DC Summary from [place]- Trials included Prazosin, Trileptal, Wellbutrin, Trazodone, Vistaril, Melatonin. 07/12/23 cont plan of care abilify wellbutrin 07/13/2023 Continue plan of care patient feeling somewhat more stable does feel fragile would benefit from DBT type skills and trauma informed therapy Reason for continued inpatient stay Substantial Risk for: harm to self Time Spent With Patient Time: Total time managing care of this patient today ____ minutes.
[2023-07-14 08:15] VITALS: BP 119/62; PULSE 89; RESP 18; TEMP 36.6; O2SAT 98
[2023-07-14] MEDS: Docusate Sodium 100 MG CAPSULE PO ×2 (08:46→20:17)
[2023-07-14] MEDS: buPROPion HCL 75 MG TABLET PO (08:46)
[2023-07-14] MEDS: OXcarbazepine 150 MG TABLET PO ×2 (08:46→20:17)
[2023-07-14] MEDS: ARIPiprazole 2 MG TABLET PO (08:47)
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
[2023-07-14 20:14] VITALS: BP 126/74; PULSE 87; RESP 18; TEMP 36.6
[2023-07-14] MEDS: Prazosin HCL 1 MG CAPSULE 3 MG PO (20:16)
[2023-07-14] MEDS: Sennosides 8.6 MG TABLET 17.2 MG PO (20:17)
[2023-07-14] MEDS: traZODone HCL 100 MG TABLET PO (20:17)
[2023-07-14] MEDS: Sertraline HCL 50 MG TABLET PO (20:17)
[2023-07-15] MEDS: buPROPion HCl XL 150 MG TAB.ER.24H PO (08:56)
[2023-07-15] MEDS: ARIPiprazole 2 MG TABLET PO (08:56)
[2023-07-15] MEDS: OXcarbazepine 150 MG TABLET PO ×2 (08:56→20:07)
[2023-07-15] MEDS: Docusate Sodium 100 MG CAPSULE PO ×2 (08:56→20:07)
[2023-07-15 09:00] VITALS: BP 120/68; PULSE 98; RESP 16; TEMP 36.3; O2SAT 98
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
[2023-07-15 20:05] VITALS: BP 118/73; PULSE 106; RESP 18
[2023-07-15] MEDS: Prazosin HCL 1 MG CAPSULE 3 MG PO (20:06)
[2023-07-15] MEDS: Sennosides 8.6 MG TABLET 17.2 MG PO (20:07)
[2023-07-15] MEDS: traZODone HCL 100 MG TABLET PO (20:07)
[2023-07-15] MEDS: Sertraline HCL 50 MG TABLET PO (20:07)
[2023-07-16] MEDS: buPROPion HCl XL 150 MG TAB.ER.24H PO (08:22)
[2023-07-16] MEDS: Docusate Sodium 100 MG CAPSULE PO ×2 (08:22→19:48)
[2023-07-16] MEDS: ARIPiprazole 2 MG TABLET PO (08:22)
[2023-07-16] MEDS: OXcarbazepine 150 MG TABLET PO ×2 (08:22→19:48)
[2023-07-16 08:27] VITALS: BP 121/69; PULSE 89; RESP 16; TEMP 36.3; O2SAT 95
--- NOTE | 2023-07-16 10:16 | HO.PSYCHPN ---
Subjective Subjective Date of Service: 07/16/23 Reason For Visit: Recurrent major depression,SI,EToh use d/o,Cannabi Subjective Notes: Conditional Voluntary Healthcare Proxy: No Guardianship: No Medical Problems Affecting Mental Status: No Interim History: Active in milieu. Attending groups. Spending time with [facility] therapy dog today. Well engaged with peers and team. No reports of med SE. Will continue titration if asymptomatic on 07/17. Medication Compliance: Yes Side effects from medications: No Attending Groups: Yes Review of Systems Acute medical concerns: No Medical Review of Systems: unchanged Mental Status Exam Mental Status Exam Patient Appearance: Appropriate Patient Orientation: Person, Place, Time and Situation Level of Consciousness: Alert Patient Behavior: Talkative and Good Eye Contact Mood Description: Anxious and Blunted Affect Description: Anxious Patient Cognition Impaired: No Ability to Follow Directions: Good Speech Pattern: Spontaneous Speech Memory Description: Intact Hallucinations: Visual Delusions: Not Present Perceptual Disturbances: Depersonalization and Derealization Thought Process: Rumination Thought Content: positive for Perseveration and positive for Suicidal Ideation (denies) Depressive Symptoms: Increased Anxiety, Loss of Int. in Activity, Hopelessness, Unhappiness and Difficulty Concentrating Judgement: Fair Diagnostics Vital Signs (24Hr): Vital Signs - 24 hr 07/15/23 20:05 07/16/23 08:27 Temperature 97.3 F Pulse Rate 106 H 89 Respiratory Rate 18 16 Blood Pressure 118/73 121/69 Pulse Oximetry 95 Oxygen Delivery Method Room Air BMI result Body Mass Index 43.4 Labs 07/07/23 20:56 07/07/23 17:15 Medications Medications Current Medications Acetaminophen (Acetaminophen 325 Mg Tablet) 650 mg PO Q6H PRN PRN Reason: Headache/Pain Mild Scale (1-3) Al Hydroxide/Mg Hydroxide (Magnesium Hydrox/Alum Hydrox 30 Ml Oral.Susp) 30 ml PO Q6H PRN PRN Reason: Heartburn/Nausea Albuterol Sulfate (Albuterol Sulfate 90 Mcg 8 Gm Inhaler) 2 puff INHALE Q4H PRN PRN Reason: shortness of breath or wheezing Aripiprazole (Aripiprazole 2 Mg Tablet) 2 mg PO DAILY [facility] Last Admin: 07/16/23 08:22 Dose: 2 mg Bisacodyl (Bisacodyl 5 Mg Tablet.Dr) 10 mg PO DAILY PRN PRN Reason: Constipation Bupropion HCl (Bupropion Hcl Xl 150 Mg Tab.Er.24h) 150 mg PO DAILY [facility] Last Admin: 07/16/23 08:22 Dose: 150 mg Docusate Sodium (Docusate Sodium 100 Mg Capsule) 100 mg PO BID [facility] Last Admin: 07/16/23 08:22 Dose: 100 mg Hydroxyzine HCl (Hydroxyzine Hcl 25 Mg Tablet) 25 mg PO TID PRN PRN Reason: Anxiety Last Admin: 07/12/23 20:55 Dose: 25 mg Magnesium Hydroxide (Milk Of Magnesia 30 Ml Oral.Susp) 30 ml PO DAILY PRN PRN Reason: Constipation Nicotine Polacrilex (Nicotine Polacrilex Lozenge 4 Mg Lozenge) 4 mg BUCCAL Q2H PRN PRN Reason: Nicotine Cravings Last Admin: 07/09/23 16:58 Dose: 4 mg Oxcarbazepine (Oxcarbazepine 150 Mg Tablet) 150 mg PO BID [facility] Last Admin: 07/16/23 08:22 Dose: 150 mg Prazosin HCl (Prazosin Hcl 1 Mg Capsule) 3 mg PO BEDTIME [facility]; Protocol Last Admin: 07/15/23 20:06 Dose: 3 mg Senna (Sennosides 8.6 Mg Tablet) 17.2 mg PO BEDTIME [facility] Last Admin: 07/15/23 20:07 Dose: 17.2 mg Sertraline HCl (Sertraline Hcl 50 Mg Tablet) 50 mg PO BEDTIME [facility] Last Admin: 07/15/23 20:07 Dose: 50 mg Trazodone HCl (Trazodone Hcl 100 Mg Tablet) 100 mg PO BEDTIME [facility] Last Admin: 07/15/23 20:07 Dose: 100 mg Trazodone HCl (Trazodone Hcl 50 Mg Tablet) 50 mg PO BEDTIME MRX1 PRN PRN Reason: Insomnia Last Admin: 07/12/23 20:55 Dose: 50 mg Allergies Allergies Allergy/AdvReac Type Severity Reaction Status Date / Time oxycodone [From Percocet] Allergy Severe Rash Verified 06/19/23 16:32 Assessment & Plan Assessment & Plan (1) Depression with suicidal ideation: Status: Acute Code(s): F32.A - Depression, unspecified; R45.851 - Suicidal ideations (2) Alcohol use disorder in remission: Status: Acute Code(s): F10.91 - Alcohol use, unspecified, in remission (3) Autism spectrum disorder: Status: Acute Code(s): F84.0 - Autistic disorder (4) PTSD (post-traumatic stress disorder): Status: Acute Code(s): F43.10 - Post-traumatic stress disorder, unspecified Plan 33 yo female, hx of recurrent major depression, severe, r/o bipolar disorder, PTSD, autism spectrum disorder, possible ADHD, alcohol use disorder in remission. Pt comes from a residential program where she will complete a year in August. She had a recent medicine change and believes this increased her SI/intensity of sx. She presents to have her regime re-established and stabilized. Plan: [facility]EN for [facility] sent as pt does not recall what trials she has had to make medication changes. Full milieu encouraged Collect residential resources for pt to explore Coping skills work Aftercare/OP planning 07/10/23 Increase Sertraline to 50 mg daily Wellbutrin 75 mg a.m. 07/11/23 Continue current regime and plan of care Later in the day, received DC Summary from [place]- Trials included Prazosin, Trileptal, Wellbutrin, Trazodone, Vistaril, Melatonin. 07/12/23 cont plan of care abilify wellbutrin 07/13/2023 Continue plan of care patient feeling somewhat more stable does feel fragile would benefit from DBT type skills and trauma informed therapy 07/14/23 Increase Wellbutrin to 150 mg XL a.m. Increase Prazosin to 3 mg hs 07/15/23 Continue current regime and plan of care. Assist pt in transition- she is informed today that [facility] discharged her from their program. 07/16/23 Continue current regime and plan of care. Informed Consent: understands Reason for continued inpatient stay Substantial Risk for: rapid decompensation Time Spent With Patient Time: Total time managing care of this patient today ____ minutes.
[2023-07-16 19:43] VITALS: BP 129/71; PULSE 87; TEMP 36.6
[2023-07-16] MEDS: traZODone HCL 100 MG TABLET PO (19:48)
[2023-07-16] MEDS: Sertraline HCL 50 MG TABLET PO (19:48)
[2023-07-16] MEDS: Prazosin HCL 1 MG CAPSULE 3 MG PO (19:48)
[2023-07-16] MEDS: Sennosides 8.6 MG TABLET 17.2 MG PO (19:48)
[2023-07-16] MEDS: hydrOXYzine HCL 25 MG TABLET PO (19:48)
[2023-07-17 07:00] VITALS: BMI 43.8
[2023-07-17 08:00] VITALS: BP 107/67; PULSE 102; RESP 18; TEMP 36.7; O2SAT 93
[2023-07-17] MEDS: buPROPion HCl XL 150 MG TAB.ER.24H PO (08:07)
[2023-07-17] MEDS: ARIPiprazole 2 MG TABLET PO (08:07)
[2023-07-17] MEDS: OXcarbazepine 150 MG TABLET PO (08:07)
[2023-07-17] MEDS: Docusate Sodium 100 MG CAPSULE PO ×2 (08:08→21:07)
--- NOTE | 2023-07-17 10:16 | HO.PSYCHPN ---
Subjective Subjective Date of Service: 07/17/23 Reason For Visit: Recurrent major depression,SI,EToh use d/o,Cannabi Subjective Notes: Conditional Voluntary Healthcare Proxy: No Guardianship: No Medical Problems Affecting Mental Status: No Interim History: Pt reports some sx of panic at night. She has drafted a letter to [facility] with her opinions about how she felt unfairly treated and how she feels others have been unfairly treated due to disability. Yeyo GUZMÁN discussed [facility] with pt and she is interested. [facility]. Hydroxyzine dosage increased to 50 mg tid prn, Seroquel 25 mg hs added and Trileptal increased to 300 mg bid. Medication Compliance: Yes Side effects from medications: No Attending Groups: Yes Review of Systems Acute medical concerns: No Mental Status Exam Mental Status Exam Patient Appearance: Appropriate Patient Orientation: Person, Place, Time and Situation Level of Consciousness: Alert Patient Behavior: Talkative and Good Eye Contact Mood Description: Anxious and Blunted Affect Description: Anxious Patient Cognition Impaired: No Ability to Follow Directions: Good Speech Pattern: Spontaneous Speech Memory Description: Intact Hallucinations: Visual Delusions: Not Present Perceptual Disturbances: Depersonalization and Derealization Thought Process: Rumination Thought Content: positive for Perseveration and positive for Suicidal Ideation (denies) Depressive Symptoms: Increased Anxiety, Loss of Int. in Activity, Hopelessness, Unhappiness and Difficulty Concentrating Judgement: Fair Diagnostics Vital Signs (24Hr): Vital Signs - 24 hr 07/16/23 19:43 07/17/23 08:00 Temperature 97.8 F 98.1 F Pulse Rate 87 102 H Respiratory Rate 18 Blood Pressure 129/71 107/67 Pulse Oximetry 93 Oxygen Delivery Method Room Air BMI result Body Mass Index 43.4 Labs 07/07/23 20:56 07/07/23 17:15 Medications Medications Current Medications Acetaminophen (Acetaminophen 325 Mg Tablet) 650 mg PO Q6H PRN PRN Reason: Headache/Pain Mild Scale (1-3) Al Hydroxide/Mg Hydroxide (Magnesium Hydrox/Alum Hydrox 30 Ml Oral.Susp) 30 ml PO Q6H PRN PRN Reason: Heartburn/Nausea Albuterol Sulfate (Albuterol Sulfate 90 Mcg 8 Gm Inhaler) 2 puff INHALE Q4H PRN PRN Reason: shortness of breath or wheezing Aripiprazole (Aripiprazole 2 Mg Tablet) 2 mg PO DAILY [facility] Last Admin: 07/17/23 08:07 Dose: 2 mg Bisacodyl (Bisacodyl 5 Mg Tablet.Dr) 10 mg PO DAILY PRN PRN Reason: Constipation Bupropion HCl (Bupropion Hcl Xl 150 Mg Tab.Er.24h) 150 mg PO DAILY [facility] Last Admin: 07/17/23 08:07 Dose: 150 mg Docusate Sodium (Docusate Sodium 100 Mg Capsule) 100 mg PO BID [facility] Last Admin: 07/17/23 08:08 Dose: 100 mg Hydroxyzine HCl (Hydroxyzine Hcl 25 Mg Tablet) 25 mg PO TID PRN PRN Reason: Anxiety Last Admin: 07/16/23 19:48 Dose: 25 mg Magnesium Hydroxide (Milk Of Magnesia 30 Ml Oral.Susp) 30 ml PO DAILY PRN PRN Reason: Constipation Nicotine Polacrilex (Nicotine Polacrilex Lozenge 4 Mg Lozenge) 4 mg BUCCAL Q2H PRN PRN Reason: Nicotine Cravings Last Admin: 07/09/23 16:58 Dose: 4 mg Oxcarbazepine (Oxcarbazepine 150 Mg Tablet) 150 mg PO BID [facility] Last Admin: 07/17/23 08:07 Dose: 150 mg Prazosin HCl (Prazosin Hcl 1 Mg Capsule) 3 mg PO BEDTIME [facility]; Protocol Last Admin: 07/16/23 19:48 Dose: 3 mg Senna (Sennosides 8.6 Mg Tablet) 17.2 mg PO BEDTIME [facility] Last Admin: 07/16/23 19:48 Dose: 17.2 mg Sertraline HCl (Sertraline Hcl 50 Mg Tablet) 50 mg PO BEDTIME [facility] Last Admin: 07/16/23 19:48 Dose: 50 mg Trazodone HCl (Trazodone Hcl 100 Mg Tablet) 100 mg PO BEDTIME [facility] Last Admin: 07/16/23 19:48 Dose: 100 mg Trazodone HCl (Trazodone Hcl 50 Mg Tablet) 50 mg PO BEDTIME MRX1 PRN PRN Reason: Insomnia Last Admin: 07/12/23 20:55 Dose: 50 mg Allergies Allergies Allergy/AdvReac Type Severity Reaction Status Date / Time oxycodone [From Percocet] Allergy Severe Rash Verified 06/19/23 16:32 Assessment & Plan Assessment & Plan (1) Depression with suicidal ideation: Status: Acute Code(s): F32.A - Depression, unspecified; R45.851 - Suicidal ideations (2) Alcohol use disorder in remission: Status: Acute Code(s): F10.91 - Alcohol use, unspecified, in remission (3) Autism spectrum disorder: Status: Acute Code(s): F84.0 - Autistic disorder (4) PTSD (post-traumatic stress disorder): Status: Acute Code(s): F43.10 - Post-traumatic stress disorder, unspecified Plan 33 yo female, hx of recurrent major depression, severe, r/o bipolar disorder, PTSD, autism spectrum disorder, possible ADHD, alcohol use disorder in remission. Pt comes from a residential program where she will complete a year in August. She had a recent medicine change and believes this increased her SI/intensity of sx. She presents to have her regime re-established and stabilized. Plan: BRENDEN for [facility] sent as pt does not recall what trials she has had to make medication changes. Full milieu encouraged Collect residential resources for pt to explore Coping skills work Aftercare/OP planning 07/10/23 Increase Sertraline to 50 mg daily Wellbutrin 75 mg a.m. 07/11/23 Continue current regime and plan of care Later in the day, received DC Summary from [place]- Trials included Prazosin, Trileptal, Wellbutrin, Trazodone, Vistaril, Melatonin. 07/12/23 cont plan of care abilify wellbutrin 07/13/2023 Continue plan of care patient feeling somewhat more stable does feel fragile would benefit from DBT type skills and trauma informed therapy 07/14/23 Increase Wellbutrin to 150 mg XL a.m. Increase Prazosin to 3 mg hs 07/15/23 Continue current regime and plan of care. Assist pt in transition- she is informed today that [facility] has discharged her from their program. 07/16/23 Continue current regime and plan of care. 07/17/23 Increase Hydroxyzine to 50 mg tid prn Seroquel 25 mg HS Increase Trileptal to 300 mg bid Patient educated on: medication risk/benefits, therapeutic strategies and other Informed Consent: understands Reason for continued inpatient stay Substantial Risk for: rapid decompensation Time Spent With Patient Time: Total time managing care of this patient today ____ minutes.
[2023-07-17] MEDS: hydrOXYzine HCL 25 MG TABLET PO (12:24)
[2023-07-17] MEDS: Acetaminophen 325 MG TABLET 650 MG PO (17:44)
[2023-07-17 18:04] VITALS: BP 125/73; PULSE 80; RESP 16; TEMP 36.7; O2SAT 96
[2023-07-17] MEDS: QUEtiapine Fumarate 25 MG TABLET PO (21:07)
[2023-07-17] MEDS: traZODone HCL 100 MG TABLET PO (21:07)
[2023-07-17] MEDS: Prazosin HCL 1 MG CAPSULE 3 MG PO (21:07)
[2023-07-17] MEDS: OXcarbazepine 300 MG TABLET PO (21:07)
[2023-07-17] MEDS: Sennosides 8.6 MG TABLET 17.2 MG PO (21:07)
[2023-07-17] MEDS: Sertraline HCL 50 MG TABLET PO (21:07)
[2023-07-18 08:00] VITALS: BP 130/70; PULSE 97; RESP 18; TEMP 36.7; O2SAT 95
[2023-07-18] MEDS: buPROPion HCl XL 150 MG TAB.ER.24H PO (08:03)
[2023-07-18] MEDS: OXcarbazepine 300 MG TABLET PO ×2 (08:03→20:37)
[2023-07-18] MEDS: Docusate Sodium 100 MG CAPSULE PO ×2 (08:03→20:37)
[2023-07-18] MEDS: ARIPiprazole 2 MG TABLET PO (08:03)
--- NOTE | 2023-07-18 09:03 | P.PNPSI_ITS ---
Subjective Subjective Date of Service: 07/18/23 Reason For Visit: Recurrent major depression,SI,EToh use d/o,Cannabi Subjective Notes: Conditional Voluntary Healthcare Proxy: No Guardianship: No Medical Problems Affecting Mental Status: No Interim History: Call to dietary to request that gluten-free be removed from her profile as it was removed from her orders after admission. Pt with safety concerns last night. Grieving the loss of her program. Today, she drafted a letter to [facility] corbin which we reviewed and sent, expressing her concerns and perspective. States she felt improved and somewhat relieved after writing this. Pt seen by recovery team-she is craving and tasting Dayron Garcias and appreciative of the support and education. Discussed the many changes upcoming for her, discussed her grief and feeling poorly treated by [facility] for the precipitous discharge. Medication Compliance: Yes Side effects from medications: No Attending Groups: Yes Review of Systems Acute medical concerns: No Medical Review of Systems: unchanged Mental Status Exam Mental Status Exam Patient Appearance: Appropriate Patient Orientation: Person, Place, Time and Situation Level of Consciousness: Alert Patient Behavior: Talkative and Good Eye Contact Mood Description: Anxious and Blunted Affect Description: Anxious Patient Cognition Impaired: No Ability to Follow Directions: Good Speech Pattern: Spontaneous Speech Memory Description: Intact Hallucinations: Visual Delusions: Not Present Perceptual Disturbances: Depersonalization and Derealization Thought Process: Rumination Thought Content: positive for Perseveration and positive for Suicidal Ideation Depressive Symptoms: Increased Anxiety, Loss of Int. in Activity, Hopelessness, Unhappiness, Thoughts of /Suicide and Difficulty Concentrating Judgement: Fair Diagnostics Vital Signs (24Hr): Vital Signs - 24 hr 07/17/23 18:04 07/18/23 08:00 Temperature 98.0 F 98.1 F Pulse Rate 80 97 Respiratory Rate 16 18 Blood Pressure 125/73 130/70 Pulse Oximetry 96 95 Oxygen Delivery Method Room Air Room Air BMI result Body Mass Index 43.8 Labs 07/07/23 20:56 07/07/23 17:15 Medications Medications Current Medications Acetaminophen (Acetaminophen 325 Mg Tablet) 650 mg PO Q6H PRN PRN Reason: Headache/Pain Mild Scale (1-3) Last Admin: 07/17/23 17:44 Dose: 650 mg Al Hydroxide/Mg Hydroxide (Magnesium Hydrox/Alum Hydrox 30 Ml Oral.Susp) 30 ml PO Q6H PRN PRN Reason: Heartburn/Nausea Albuterol Sulfate (Albuterol Sulfate 90 Mcg 8 Gm Inhaler) 2 puff INHALE Q4H PRN PRN Reason: shortness of breath or wheezing Aripiprazole (Aripiprazole 2 Mg Tablet) 2 mg PO DAILY [facility] Last Admin: 07/18/23 08:03 Dose: 2 mg Bisacodyl (Bisacodyl 5 Mg Tablet.Dr) 10 mg PO DAILY PRN PRN Reason: Constipation Bupropion HCl (Bupropion Hcl Xl 150 Mg Tab.Er.24h) 150 mg PO DAILY [facility] Last Admin: 07/18/23 08:03 Dose: 150 mg Docusate Sodium (Docusate Sodium 100 Mg Capsule) 100 mg PO BID [facility] Last Admin: 07/18/23 08:03 Dose: 100 mg Hydroxyzine HCl (Hydroxyzine Hcl 50 Mg Tablet) 50 mg PO TID PRN PRN Reason: Anxiety Magnesium Hydroxide (Milk Of Magnesia 30 Ml Oral.Susp) 30 ml PO DAILY PRN PRN Reason: Constipation Nicotine Polacrilex (Nicotine Polacrilex Lozenge 4 Mg Lozenge) 4 mg BUCCAL Q2H PRN PRN Reason: Nicotine Cravings Last Admin: 07/09/23 16:58 Dose: 4 mg Oxcarbazepine (Oxcarbazepine 300 Mg Tablet) 300 mg PO BID [facility] Last Admin: 07/18/23 08:03 Dose: 300 mg Prazosin HCl (Prazosin Hcl 1 Mg Capsule) 3 mg PO BEDTIME [facility]; Protocol Last Admin: 07/17/23 21:07 Dose: 3 mg Quetiapine Fumarate (Quetiapine Fumarate 25 Mg Tablet) 25 mg PO BEDTIME [facility] Last Admin: 07/17/23 21:07 Dose: 25 mg Senna (Sennosides 8.6 Mg Tablet) 17.2 mg PO BEDTIME [facility] Last Admin: 07/17/23 21:07 Dose: 17.2 mg Sertraline HCl (Sertraline Hcl 50 Mg Tablet) 50 mg PO BEDTIME [facility] Last Admin: 07/17/23 21:07 Dose: 50 mg Trazodone HCl (Trazodone Hcl 100 Mg Tablet) 100 mg PO BEDTIME [facility] Last Admin: 07/17/23 21:07 Dose: 100 mg Trazodone HCl (Trazodone Hcl 50 Mg Tablet) 50 mg PO BEDTIME MRX1 PRN PRN Reason: Insomnia Last Admin: 07/12/23 20:55 Dose: 50 mg Allergies Allergies Allergy/AdvReac Type Severity Reaction Status Date / Time oxycodone [From Percocet] Allergy Severe Rash Verified 06/19/23 16:32 Assessment & Plan Assessment & Plan (1) Depression with suicidal ideation: Status: Acute Code(s): F32.A - Depression, unspecified; R45.851 - Suicidal ideations (2) Alcohol use disorder in remission: Status: Acute Code(s): F10.91 - Alcohol use, unspecified, in remission (3) Autism spectrum disorder: Status: Acute Code(s): F84.0 - Autistic disorder (4) PTSD (post-traumatic stress disorder): Status: Acute Code(s): F43.10 - Post-traumatic stress disorder, unspecified Plan 33 yo female, hx of recurrent major depression, severe, r/o bipolar disorder, PTSD, autism spectrum disorder, possible ADHD, alcohol use disorder in remission. Pt comes from a residential program where she will complete a year in August. She had a recent medicine change and believes this increased her SI/int ensity of sx. She presents to have her regime re-established and stabilized. Plan: BRENDEN for [facility] sent as pt does not recall what trials she has had to make medication changes. Full milieu encouraged Collect residential resources for pt to explore Coping skills work Aftercare/OP planning 07/10/23 Increase Sertraline to 50 mg daily Wellbutrin 75 mg a.m. 07/11/23 Continue current regime and plan of care Later in the day, received DC Summary from [place]- Trials included Prazosin, Trileptal, Wellbutrin, Trazodone, Vistaril, Melatonin. 07/12/23 cont plan of care abilify wellbutrin 07/13/2023 Continue plan of care patient feeling somewhat more stable does feel fragile would benefit from DBT type skills and trauma informed therapy 07/14/23 Increase Wellbutrin to 150 mg XL a.m. Increase Prazosin to 3 mg hs 07/15/23 Continue current regime and plan of care. Assist pt in transition- she is informed today that [facility] has discharged her from their program. 07/16/23 Continue current regime and plan of care. 07/17/23 Increase Hydroxyzine to 50 mg tid prn Seroquel 25 mg HS Increase Trileptal to 300 mg bid 07/18/23 Continue current regime and plan of care Patient educated on: substance abuse, therapeutic strategies and other Informed Consent: understands Reason for continued inpatient stay Substantial Risk for: harm to self, inability to function and rapid decompensation Time Spent With Patient Time: Total time managing care of this patient today ____ minutes.
--- NOTE | 2023-07-18 13:49 | MHC.RECOVRN ---
Made contact with pt to assess what supports she is interested in. Pt reports 1 year of sustained sobriety, and expressed some concerns of increasing cravings. Pt endorsing that she would like to start Vivitrol, reports she has taken naltrexone in the past with good effect. Pt also expressing interest in AA meetings, stating she would even be open to meetings via Zoom. Plan for referral for manager recovery, provider made aware of pt's desire to start Vivitrol. Plan to follow up with pt with resource materials.
[2023-07-18] MEDS: hydrOXYzine HCL 50 MG TABLET PO (16:32)
--- NOTE | 2023-07-18 20:32 | MHC.RECOVSUP ---
? Reason for consult:ETOH o? Current location:511-1? o? Identified substance use concern:? -? Support ?? Intervention: o? Community resources provided o? Harm reduction discussion ? Plan:Transition to CSS/TSS ? Additional information:head golf coach met with this patient and discussed treatment options, pt stated that she was discharged from [facility] at [address] [place] [address] and she doesn't want to leave without going to another facility [place] [facility]. Please follow up with this pt and complete a referral for TSS/CSS.
[2023-07-18] MEDS: Sennosides 8.6 MG TABLET 17.2 MG PO (20:37)
[2023-07-18] MEDS: traZODone HCL 100 MG TABLET PO (20:37)
[2023-07-18] MEDS: Sertraline HCL 50 MG TABLET PO (20:37)
[2023-07-18] MEDS: Prazosin HCL 1 MG CAPSULE 3 MG PO (20:37)
[2023-07-18] MEDS: QUEtiapine Fumarate 25 MG TABLET PO (20:38)
[2023-07-19 06:00] VITALS: BP 114/64; PULSE 98; RESP 18
[2023-07-19] MEDS: ARIPiprazole 2 MG TABLET PO (08:02)
[2023-07-19] MEDS: Docusate Sodium 100 MG CAPSULE PO ×2 (08:02→19:56)
[2023-07-19] MEDS: OXcarbazepine 300 MG TABLET PO ×2 (08:02→19:55)
[2023-07-19] MEDS: buPROPion HCl XL 150 MG TAB.ER.24H PO (08:02)
--- NOTE | 2023-07-19 12:04 | HO.PSYCHPN ---
Subjective Subjective Date of Service: 07/19/23 Reason For Visit: Recurrent major depression,SI,EToh use d/o,Cannabi Interim History: pt med compliant; pleasant; in good behavioral control; attending groups; spending time with another patient that has autism and getting along well. Medication Compliance: Yes Side effects from medications: No Attending Groups: Yes Review of Systems Acute medical concerns: No Review of Systems Review of Systems Yes all other systems are reviewed and are negative Reports behavioral changes Psychiatric: Reports anxiety, Reports behavioral changes, Reports depression, Reports hopelessness, Reports anhedonia, Reports visual hallucinations, Reports hallucinations and Reports suicidal ideation Mental Status Exam Mental Status Exam Patient Appearance: Appropriate Patient Orientation: Person, Place, Time and Situation Level of Consciousness: Alert Patient Behavior: Talkative and Good Eye Contact Mood Description: Anxious and Blunted Affect Description: Anxious Patient Cognition Impaired: No Ability to Follow Directions: Good Speech Pattern: Spontaneous Speech Memory Description: Intact Judgement: Fair Diagnostics Vital Signs (24Hr): Vital Signs - 24 hr 07/19/23 06:00 Pulse Rate 98 Respiratory Rate 18 Blood Pressure 114/64 Oxygen Delivery Method Room Air BMI result Body Mass Index 43.8 Labs 07/07/23 20:56 07/07/23 17:15 Medications Medications Current Medications Acetaminophen (Acetaminophen 325 Mg Tablet) 650 mg PO Q6H PRN PRN Reason: Headache/Pain Mild Scale (1-3) Last Admin: 07/17/23 17:44 Dose: 650 mg Al Hydroxide/Mg Hydroxide (Magnesium Hydrox/Alum Hydrox 30 Ml Oral.Susp) 30 ml PO Q6H PRN PRN Reason: Heartburn/Nausea Albuterol Sulfate (Albuterol Sulfate 90 Mcg 8 Gm Inhaler) 2 puff INHALE Q4H PRN PRN Reason: shortness of breath or wheezing Aripiprazole (Aripiprazole 2 Mg Tablet) 2 mg PO DAILY [facility] Last Admin: 07/19/23 08:02 Dose: 2 mg Bisacodyl (Bisacodyl 5 Mg Tablet.Dr) 10 mg PO DAILY PRN PRN Reason: Constipation Bupropion HCl (Bupropion Hcl Xl 150 Mg Tab.Er.24h) 150 mg PO DAILY [facility] Last Admin: 07/19/23 08:02 Dose: 150 mg Docusate Sodium (Docusate Sodium 100 Mg Capsule) 100 mg PO BID [facility] Last Admin: 07/19/23 08:02 Dose: 100 mg Hydroxyzine HCl (Hydroxyzine Hcl 50 Mg Tablet) 50 mg PO TID PRN PRN Reason: Anxiety Last Admin: 07/18/23 16:32 Dose: 50 mg Magnesium Hydroxide (Milk Of Magnesia 30 Ml Oral.Susp) 30 ml PO DAILY PRN PRN Reason: Constipation Nicotine Polacrilex (Nicotine Polacrilex Lozenge 4 Mg Lozenge) 4 mg BUCCAL Q2H PRN PRN Reason: Nicotine Cravings Last Admin: 07/09/23 16:58 Dose: 4 mg Oxcarbazepine (Oxcarbazepine 300 Mg Tablet) 300 mg PO BID [facility] Last Admin: 07/19/23 08:02 Dose: 300 mg Prazosin HCl (Prazosin Hcl 1 Mg Capsule) 3 mg PO BEDTIME [facility]; Protocol Last Admin: 07/18/23 20:37 Dose: 3 mg Quetiapine Fumarate (Quetiapine Fumarate 25 Mg Tablet) 25 mg PO BEDTIME [facility] Last Admin: 07/18/23 20:38 Dose: 25 mg Senna (Sennosides 8.6 Mg Tablet) 17.2 mg PO BEDTIME [facility] Last Admin: 07/18/23 20:37 Dose: 17.2 mg Sertraline HCl (Sertraline Hcl 50 Mg Tablet) 50 mg PO BEDTIME [facility] Last Admin: 07/18/23 20:37 Dose: 50 mg Trazodone HCl (Trazodone Hcl 100 Mg Tablet) 100 mg PO BEDTIME [facility] Last Admin: 07/18/23 20:37 Dose: 100 mg Trazodone HCl (Trazodone Hcl 50 Mg Tablet) 50 mg PO BEDTIME MRX1 PRN PRN Reason: Insomnia Last Admin: 07/12/23 20:55 Dose: 50 mg Allergies Allergies Allergy/AdvReac Type Severity Reaction Status Date / Time oxycodone [From Percocet] Allergy Severe Rash Verified 06/19/23 16:32 Assessment & Plan Assessment & Plan (1) Depression with suicidal ideation: Status: Acute Code(s): F32.A - Depression, unspecified; R45.851 - Suicidal ideations (2) Alcohol use disorder in remission: Status: Acute Code(s): F10.91 - Alcohol use, unspecified, in remission (3) Autism spectrum disorder: Status: Acute Code(s): F84.0 - Autistic disorder (4) PTSD (post-traumatic stress disorder): Status: Acute Code(s): F43.10 - Post-traumatic stress disorder, unspecified Plan 33 yo female, hx of recurrent major depression, severe, r/o bipolar disorder, PTSD, autism spectrum disorder, possible ADHD, alcohol use disorder in remission. Pt comes from a residential program where she will complete a year in August. She had a recent medicine change and believes this increased her SI/intensity of sx. She presents to have her regime re-established and stabilized. Plan: [facility]EN for [facility] sent as pt does not recall what trials she has had to make medication changes. Full milieu encouraged Collect residential resources for pt to explore Coping skills work Aftercare/OP planning 07/10/23 Increase Sertraline to 50 mg daily Wellbutrin 75 mg a.m. 07/11/23 Continue current regime and plan of care Later in the day, received DC Summary from [place]- Trials included Prazosin, Trileptal, Wellbutrin, Trazodone, Vistaril, Melatonin. 07/12/23 cont plan of care abilify wellbutrin 07/13/2023 Continue plan of care patient feeling somewhat more stable does feel fragile would benefit from DBT type skills and trauma informed therapy 07/14/23 Increase Wellbutrin to 150 mg XL a.m. Increase Prazosin to 3 mg hs 07/15/23 Continue current regime and plan of care. Assist pt in transition- she is informed today that [facility] has discharged her from their program. 07/16/23 Continue current regime and plan of care. 07/17/23 Increase Hydroxyzine to 50 mg tid prn Seroquel 25 mg HS Increase Trileptal to 300 mg bid 07/18/23 Continue current regime and plan of care 07/19/23 continue current treatment plan Reason for continued inpatient stay Substantial Risk for: harm to self, inability to function and rapid decompensation Time Spent With Patient Time: Total time managing care of this patient today ____ minutes.
[2023-07-19 19:42] VITALS: BP 129/81; PULSE 101; TEMP 36.6
[2023-07-19] MEDS: Sennosides 8.6 MG TABLET 17.2 MG PO (19:55)
[2023-07-19] MEDS: Prazosin HCL 1 MG CAPSULE 3 MG PO (19:55)
[2023-07-19] MEDS: traZODone HCL 100 MG TABLET PO (19:56)
[2023-07-19] MEDS: Sertraline HCL 50 MG TABLET PO (19:56)
[2023-07-19] MEDS: hydrOXYzine HCL 50 MG TABLET PO (19:56)
[2023-07-19] MEDS: QUEtiapine Fumarate 25 MG TABLET PO (19:56)
[2023-07-20 06:00] VITALS: BP 112/66; PULSE 82; RESP 16; TEMP 36.7; O2SAT 98
[2023-07-20] MEDS: buPROPion HCl XL 150 MG TAB.ER.24H PO (08:21)
[2023-07-20] MEDS: Docusate Sodium 100 MG CAPSULE PO ×2 (08:21→20:06)
[2023-07-20] MEDS: ARIPiprazole 2 MG TABLET PO (08:21)
[2023-07-20] MEDS: OXcarbazepine 300 MG TABLET PO ×2 (08:21→20:06)
--- NOTE | 2023-07-20 12:28 | P.PNPSI_ITS ---
Subjective Subjective Date of Service: 07/20/23 Reason For Visit: Recurrent major depression,SI,EToh use d/o,Cannabi Interim History: pt med compliant; pleasant; in good behavioral control; attending groups; spending time with another patient that has autism and getting along well. Smiling and reports no complaints Medication Compliance: Yes Side effects from medications: No Attending Groups: Yes Review of Systems Acute medical concerns: No Medical Review of Systems: unchanged Review of Systems Review of Systems Yes all other systems are reviewed and are negative Reports behavioral changes Psychiatric: Reports anxiety, Reports behavioral changes, Reports depression, Reports hopelessness, Reports anhedonia, Reports visual hallucinations, Reports hallucinations and Reports suicidal ideation Mental Status Exam Mental Status Exam Patient Appearance: Appropriate Patient Orientation: Person, Place, Time and Situation Level of Consciousness: Alert Patient Behavior: Appropriate, Talkative, Cooperative and Good Eye Contact Mood Description: Happy and Anxious Affect Description: Happy and Anxious Patient Cognition Impaired: No Ability to Follow Directions: Good Speech Pattern: Spontaneous Speech Memory Description: Intact Thought Process: Intact Thought Content: positive for Intact Judgement: Fair Diagnostics Vital Signs (24Hr): Vital Signs - 24 hr 07/19/23 19:42 07/20/23 06:00 Temperature 97.8 F 98.1 F Pulse Rate 101 H 82 Respiratory Rate 16 Blood Pressure 129/81 112/66 Pulse Oximetry 98 Oxygen Delivery Method Room Air BMI result Body Mass Index 43.8 Labs 07/07/23 20:56 07/07/23 17:15 Medications Medications Current Medications Acetaminophen (Acetaminophen 325 Mg Tablet) 650 mg PO Q6H PRN PRN Reason: Headache/Pain Mild Scale (1-3) Last Admin: 07/17/23 17:44 Dose: 650 mg Al Hydroxide/Mg Hydroxide (Magnesium Hydrox/Alum Hydrox 30 Ml Oral.Susp) 30 ml PO Q6H PRN PRN Reason: Heartburn/Nausea Albuterol Sulfate (Albuterol Sulfate 90 Mcg 8 Gm Inhaler) 2 puff INHALE Q4H PRN PRN Reason: shortness of breath or wheezing Aripiprazole (Aripiprazole 2 Mg Tablet) 2 mg PO DAILY [facility] Last Admin: 07/20/23 08:21 Dose: 2 mg Bisacodyl (Bisacodyl 5 Mg Tablet.Dr) 10 mg PO DAILY PRN PRN Reason: Constipation Bupropion HCl (Bupropion Hcl Xl 150 Mg Tab.Er.24h) 150 mg PO DAILY [facility] Last Admin: 07/20/23 08:21 Dose: 150 mg Docusate Sodium (Docusate Sodium 100 Mg Capsule) 100 mg PO BID [facility] Last Admin: 07/20/23 08:21 Dose: 100 mg Hydroxyzine HCl (Hydroxyzine Hcl 50 Mg Tablet) 50 mg PO TID PRN PRN Reason: Anxiety Last Admin: 07/19/23 19:56 Dose: 50 mg Magnesium Hydroxide (Milk Of Magnesia 30 Ml Oral.Susp) 30 ml PO DAILY PRN PRN Reason: Constipation Nicotine Polacrilex (Nicotine Polacrilex Lozenge 4 Mg Lozenge) 4 mg BUCCAL Q2H PRN PRN Reason: Nicotine Cravings Last Admin: 07/09/23 16:58 Dose: 4 mg Oxcarbazepine (Oxcarbazepine 300 Mg Tablet) 300 mg PO BID [facility] Last Admin: 07/20/23 08:21 Dose: 300 mg Prazosin HCl (Prazosin Hcl 1 Mg Capsule) 3 mg PO BEDTIME [facility]; Protocol Last Admin: 07/19/23 19:55 Dose: 3 mg Quetiapine Fumarate (Quetiapine Fumarate 25 Mg Tablet) 25 mg PO BEDTIME [facility] Last Admin: 07/19/23 19:56 Dose: 25 mg Senna (Sennosides 8.6 Mg Tablet) 17.2 mg PO BEDTIME [facility] Last Admin: 07/19/23 19:55 Dose: 17.2 mg Sertraline HCl (Sertraline Hcl 50 Mg Tablet) 50 mg PO BEDTIME [facility] Last Admin: 07/19/23 19:56 Dose: 50 mg Trazodone HCl (Trazodone Hcl 100 Mg Tablet) 100 mg PO BEDTIME [facility] Last Admin: 07/19/23 19:56 Dose: 100 mg Trazodone HCl (Trazodone Hcl 50 Mg Tablet) 50 mg PO BEDTIME MRX1 PRN PRN Reason: Insomnia Last Admin: 07/12/23 20:55 Dose: 50 mg Allergies Allergies Allergy/AdvReac Type Severity Reaction Status Date / Time oxycodone [From Percocet] Allergy Severe Rash Verified 06/19/23 16:32 Assessment & Plan Assessment & Plan (1) Depression with suicidal ideation: Status: Acute Code(s): F32.A - Depression, unspecified; R45.851 - Suicidal ideations (2) Alcohol use disorder in remission: Status: Acute Code(s): F10.91 - Alcohol use, unspecified, in remission (3) Autism spectrum disorder: Status: Acute Code(s): F84.0 - Autistic disorder (4) PTSD (post-traumatic stress disorder): Status: Acute Code(s): F43.10 - Post-traumatic stress disorder, unspecified Plan 33 yo female, hx of recurrent major depression, severe, r/o bipolar disorder, PTSD, autism spectrum disorder, possible ADHD, alcohol use disorder in remission. Pt comes from a residential program where she will complete a year in August. She had a recent medicine change and believes this increased her SI/ intensity of sx. She presents to have her regime re-established and stabilized. Plan: [facility] for [facility] sent as pt does not recall what trials she has had to make medication changes. Full milieu encouraged Collect residential resources for pt to explore Coping skills work Aftercare/OP planning 07/10/23 Increase Sertraline to 50 mg daily Wellbutrin 75 mg a.m. 07/11/23 Continue current regime and plan of care Later in the day, received DC Summary from [facility]- Trials included Prazosin, T rileptal, Wellbutrin, Trazodone, Vistaril, Melatonin. 07/12/23 cont plan of care abilify wellbutrin 07/13/2023 Continue plan of care patient feeling somewhat more stable does feel fragile would benefit from DBT type skills and trauma informed therapy 07/14/23 Increase Wellbutrin to 150 mg XL a.m. Increase Prazosin to 3 mg hs 07/15/23 Continue current regime and plan of care. Assist pt in transition- she is informed today that [facility] discharged her from their program. 07/16/23 Continue current regime and plan of care. 07/17/23 Increase Hydroxyzine to 50 mg tid prn Seroquel 25 mg HS Increase Trileptal to 300 mg bid 07/18/23 Continue current regime and plan of care 07/19/23 continue current treatment plan 07/20/23 contiue treatmetn regimen Patient educated on: therapeutic strategies Informed Consent: further education needed Reason for continued inpatient stay Substantial Risk for: harm to self, inability to function and rapid decompensation Time Spent With Patient Time: Total time managing care of this patient today ____ minutes.
[2023-07-20 20:03] VITALS: BP 148/62; PULSE 85; TEMP 36.4
[2023-07-20] MEDS: hydrOXYzine HCL 50 MG TABLET PO (20:06)
[2023-07-20] MEDS: Sertraline HCL 50 MG TABLET PO (20:06)
[2023-07-20] MEDS: QUEtiapine Fumarate 25 MG TABLET PO (20:06)
[2023-07-20] MEDS: Sennosides 8.6 MG TABLET 17.2 MG PO (20:07)
[2023-07-20] MEDS: Prazosin HCL 1 MG CAPSULE 3 MG PO (20:07)
[2023-07-21] MEDS: hydrOXYzine HCL 50 MG TABLET PO (06:12)
[2023-07-21 08:10] VITALS: BP 112/58; PULSE 96; RESP 16; TEMP 36.2; O2SAT 94
[2023-07-21] MEDS: buPROPion HCl XL 150 MG TAB.ER.24H PO (08:10)
[2023-07-21] MEDS: ARIPiprazole 2 MG TABLET PO (08:10)
[2023-07-21] MEDS: Docusate Sodium 100 MG CAPSULE PO ×2 (08:10→20:38)
[2023-07-21] MEDS: OXcarbazepine 300 MG TABLET PO ×2 (08:11→20:38)
--- NOTE | 2023-07-21 15:21 | HO.PSYCHPN ---
Subjective Subjective Date of Service: 07/21/23 Reason For Visit: Recurrent major depression,SI,EToh use d/o,Cannabi Subjective Notes: Conditional Voluntary Healthcare Proxy: No Guardianship: No Medical Problems Affecting Mental Status: No Interim History: Pt describes the weekend significant for nightmares but with reasonable sleep, visions of falling, thoughts of self-harm, assisted with prn atarax. Discussed Prazosin increase. Discussion of the letter she wrote to her former program on 07/18 and her thoughts retrospectively on this and its effect upon her moving forward. Medication Compliance: Yes Side effects from medications: No Attending Groups: Yes Review of Systems Acute medical concerns: No Medical Review of Systems: unchanged Mental Status Exam Mental Status Exam Patient Appearance: Appropriate Patient Orientation: Person, Place, Time and Situation Level of Consciousness: Alert Patient Behavior: Appropriate, Talkative and Good Eye Contact Mood Description: Constricted Affect Description: Constricted Patient Cognition Impaired: No Ability to Follow Directions: Good Speech Pattern: Spontaneous Speech Memory Description: Intact Hallucinations: None Delusions: Not Present Thought Process: Rumination Thought Content: positive for Perseveration and positive for Suicidal Ideation (denies) Depressive Symptoms: Low Self Esteem Judgement: Fair Diagnostics Vital Signs (24Hr): Vital Signs - 24 hr 07/20/23 20:03 07/21/23 08:10 Temperature 97.6 F 97.1 F Pulse Rate 85 96 Respiratory Rate 16 Blood Pressure 148/62 H 112/58 L Pulse Oximetry 94 Oxygen Delivery Method Room Air BMI result Body Mass Index 43.8 Labs 07/07/23 20:56 07/07/23 17:15 Medications Medications Current Medications Acetaminophen (Acetaminophen 325 Mg Tablet) 650 mg PO Q6H PRN PRN Reason: Headache/Pain Mild Scale (1-3) Last Admin: 07/17/23 17:44 Dose: 650 mg Al Hydroxide/Mg Hydroxide (Magnesium Hydrox/Alum Hydrox 30 Ml Oral.Susp) 30 ml PO Q6H PRN PRN Reason: Heartburn/Nausea Albuterol Sulfate (Albuterol Sulfate 90 Mcg 8 Gm Inhaler) 2 puff INHALE Q4H PRN PRN Reason: shortness of breath or wheezing Aripiprazole (Aripiprazole 2 Mg Tablet) 2 mg PO DAILY [facility] Last Admin: 07/21/23 08:10 Dose: 2 mg Bisacodyl (Bisacodyl 5 Mg Tablet.Dr) 10 mg PO DAILY PRN PRN Reason: Constipation Bupropion HCl (Bupropion Hcl Xl 150 Mg Tab.Er.24h) 150 mg PO DAILY [facility] Last Admin: 07/21/23 08:10 Dose: 150 mg Docusate Sodium (Docusate Sodium 100 Mg Capsule) 100 mg PO BID [facility] Last Admin: 07/21/23 08:10 Dose: 100 mg Hydroxyzine HCl (Hydroxyzine Hcl 50 Mg Tablet) 50 mg PO TID PRN PRN Reason: Anxiety Last Admin: 07/21/23 06:12 Dose: 50 mg Magnesium Hydroxide (Milk Of Magnesia 30 Ml Oral.Susp) 30 ml PO DAILY PRN PRN Reason: Constipation Nicotine Polacrilex (Nicotine Polacrilex Lozenge 4 Mg Lozenge) 4 mg BUCCAL Q2H PRN PRN Reason: Nicotine Cravings Last Admin: 07/09/23 16:58 Dose: 4 mg Oxcarbazepine (Oxcarbazepine 300 Mg Tablet) 300 mg PO BID [facility] Last Admin: 07/21/23 08:11 Dose: 300 mg Prazosin HCl (Prazosin Hcl 1 Mg Capsule) 4 mg PO BEDTIME [facility]; Protocol Quetiapine Fumarate (Quetiapine Fumarate 25 Mg Tablet) 25 mg PO BEDTIME [facility] Last Admin: 07/20/23 20:06 Dose: 25 mg Senna (Sennosides 8.6 Mg Tablet) 17.2 mg PO BEDTIME [facility] Last Admin: 07/20/23 20:07 Dose: 17.2 mg Sertraline HCl (Sertraline Hcl 50 Mg Tablet) 50 mg PO BEDTIME [facility] Last Admin: 07/20/23 20:06 Dose: 50 mg Trazodone HCl (Trazodone Hcl 100 Mg Tablet) 100 mg PO BEDTIME [facility] Last Admin: 07/20/23 20:26 Dose: Not Given Trazodone HCl (Trazodone Hcl 50 Mg Tablet) 50 mg PO BEDTIME MRX1 PRN PRN Reason: Insomnia Last Admin: 07/12/23 20:55 Dose: 50 mg Allergies Allergies Allergy/AdvReac Type Severity Reaction Status Date / Time oxycodone [From Percocet] Allergy Severe Rash Verified 06/19/23 16:32 Assessment & Plan Assessment & Plan (1) Depression with suicidal ideation: Status: Acute Code(s): F32.A - Depression, unspecified; R45.851 - Suicidal ideations (2) Alcohol use disorder in remission: Status: Acute Code(s): F10.91 - Alcohol use, unspecified, in remission (3) Autism spectrum disorder: Status: Acute Code(s): F84.0 - Autistic disorder (4) PTSD (post-traumatic stress disorder): Status: Acute Code(s): F43.10 - Post-traumatic stress disorder, unspecified Plan 33 yo female, hx of recurrent major depression, severe, r/o bipolar disorder, PTSD, autism spectrum disorder, possible ADHD, alcohol use disorder in remission. Pt comes from a residential program where she will complete a year in August. She had a recent medicine change and believes this increased her SI/intensity of sx. She presents to have her regime re-established and stabilized. Plan: [facility] for [facility] sent as pt does not recall what trials she has had to make medication changes. Full milieu encouraged Collect residential resources for pt to explore Coping skills work Aftercare/OP planning 07/10/23 Increase Sertraline to 50 mg daily Wellbutrin 75 mg a.m. 07/11/23 Continue current regime and plan of care Later in the day, received DC Summary from [facility]- Trials included Prazosin, Trileptal, Wellbutrin, Trazodone, Vistaril, Melatonin. 07/12/23 cont plan of care abilify wellbutrin 07/13/2023 Continue plan of care patient feeling somewhat more stable does feel fragile would benefit from DBT type skills and trauma informed therapy 07/14/23 Increase Wellbutrin to 150 mg XL a.m. Increase Prazosin to 3 mg hs 07/15/23 Continue current regime and plan of care. Assist pt in transition- she is informed today that [facility] her from their program. 07/16/23 Continue current regime and plan of care. 07/17/23 Increase Hydroxyzine to 50 mg tid prn Seroquel 25 mg HS Increase Trileptal to 300 mg bid 07/18/23 Continue current regime and plan of care 07/19/23 continue current treatment plan 07/20/23 contiue treatmetn regimen 07/21/23 Increase Prazosin to 4 mg HS Patient educated on: therapeutic strategies Informed Consent: understands Reason for continued inpatient stay Substantial Risk for: rapid decompensation Time Spent With Patient Time: Total time managing care of this patient today ____ minutes.
[2023-07-21 19:08] VITALS: BP 116/67; PULSE 90; RESP 16; TEMP 36.1; O2SAT 98
[2023-07-21] MEDS: traZODone HCL 100 MG TABLET PO (20:37)
[2023-07-21] MEDS: Sertraline HCL 50 MG TABLET PO (20:37)
[2023-07-21] MEDS: Sennosides 8.6 MG TABLET 17.2 MG PO (20:38)
[2023-07-21] MEDS: Prazosin HCL 1 MG CAPSULE 4 MG PO (20:38)
[2023-07-21] MEDS: QUEtiapine Fumarate 25 MG TABLET PO (20:38)
[2023-07-22] MEDS: Docusate Sodium 100 MG CAPSULE PO ×2 (07:59→21:37)
[2023-07-22] MEDS: buPROPion HCl XL 150 MG TAB.ER.24H PO (07:59)
[2023-07-22] MEDS: ARIPiprazole 2 MG TABLET PO (07:59)
[2023-07-22] MEDS: OXcarbazepine 300 MG TABLET PO ×2 (08:00→21:38)
[2023-07-22 08:05] VITALS: BP 112/58; PULSE 97; RESP 18; TEMP 36.2; O2SAT 95
[2023-07-22] MEDS: hydrOXYzine HCL 50 MG TABLET PO ×2 (13:25→21:39)
[2023-07-22 18:00] VITALS: BP 124/79; PULSE 89; RESP 18; TEMP 36.6
--- NOTE | 2023-07-22 18:25 | HO.PSYCHPN ---
Subjective Subjective Date of Service: 07/22/23 Reason For Visit: Recurrent major depression,SI,EToh use d/o,Cannabi Subjective Notes: Conditional Voluntary Healthcare Proxy: No Guardianship: No Medical Problems Affecting Mental Status: No Interim History: Discussion of discharge referrals. Pt anxious to present at a new living situation. Discussed grounding, sleep disruption, night terrors, sx mgt. Attending groups, participating in milieu and interacting with peers. Consistently reaches out to offer her perspective on recovery to others, which in turn, she reports helps her to feel an increase in strength. Medication Compliance: Yes Side effects from medications: No Attending Groups: Yes Review of Systems Acute medical concerns: No Medical Review of Systems: unchanged Mental Status Exam Mental Status Exam Patient Appearance: Appropriate Patient Orientation: Person, Place, Time and Situation Level of Consciousness: Alert Patient Behavior: Appropriate, Talkative and Good Eye Contact Mood Description: Constricted Affect Description: Constricted Patient Cognition Impaired: No Ability to Follow Directions: Good Speech Pattern: Spontaneous Speech Memory Description: Intact Hallucinations: None Delusions: Not Present Thought Process: Rumination Thought Content: positive for Perseveration and positive for Suicidal Ideation (denies) Depressive Symptoms: Low Self Esteem Judgement: Fair Diagnostics Vital Signs (24Hr): Vital Signs - 24 hr 07/21/23 19:08 07/22/23 08:05 Temperature 96.9 F 97.2 F Pulse Rate 90 97 Respiratory Rate 16 18 Blood Pressure 116/67 112/58 L Pulse Oximetry 98 95 Oxygen Delivery Method Room Air Room Air BMI result Body Mass Index 43.8 Labs 07/07/23 20:56 07/07/23 17:15 Medications Medications Current Medications Acetaminophen (Acetaminophen 325 Mg Tablet) 650 mg PO Q6H PRN PRN Reason: Headache/Pain Mild Scale (1-3) Last Admin: 07/17/23 17:44 Dose: 650 mg Al Hydroxide/Mg Hydroxide (Magnesium Hydrox/Alum Hydrox 30 Ml Oral.Susp) 30 ml PO Q6H PRN PRN Reason: Heartburn/Nausea Albuterol Sulfate (Albuterol Sulfate 90 Mcg 8 Gm Inhaler) 2 puff INHALE Q4H PRN PRN Reason: shortness of breath or wheezing Aripiprazole (Aripiprazole 2 Mg Tablet) 2 mg PO DAILY [facility] Last Admin: 07/22/23 07:59 Dose: 2 mg Bisacodyl (Bisacodyl 5 Mg Tablet.Dr) 10 mg PO DAILY PRN PRN Reason: Constipation Bupropion HCl (Bupropion Hcl Xl 150 Mg Tab.Er.24h) 150 mg PO DAILY [facility] Last Admin: 07/22/23 07:59 Dose: 150 mg Docusate Sodium (Docusate Sodium 100 Mg Capsule) 100 mg PO BID [facility] Last Admin: 07/22/23 07:59 Dose: 100 mg Hydroxyzine HCl (Hydroxyzine Hcl 50 Mg Tablet) 50 mg PO TID PRN PRN Reason: Anxiety Last Admin: 07/22/23 13:25 Dose: 50 mg Magnesium Hydroxide (Milk Of Magnesia 30 Ml Oral.Susp) 30 ml PO DAILY PRN PRN Reason: Constipation Nicotine Polacrilex (Nicotine Polacrilex Lozenge 4 Mg Lozenge) 4 mg BUCCAL Q2H PRN PRN Reason: Nicotine Cravings Last Admin: 07/09/23 16:58 Dose: 4 mg Oxcarbazepine (Oxcarbazepine 300 Mg Tablet) 300 mg PO BID [facility] Last Admin: 07/22/23 08:00 Dose: 300 mg Prazosin HCl (Prazosin Hcl 1 Mg Capsule) 4 mg PO BEDTIME [facility]; Protocol Last Admin: 07/21/23 20:38 Dose: 4 mg Quetiapine Fumarate (Quetiapine Fumarate 25 Mg Tablet) 25 mg PO BEDTIME [facility] Last Admin: 07/21/23 20:38 Dose: 25 mg Risperidone (Risperidone 0.25 Mg Tablet) 0.25 mg PO TID PRN PRN Reason: grounding assistance Senna (Sennosides 8.6 Mg Tablet) 17.2 mg PO BEDTIME [facility] Last Admin: 07/21/23 20:38 Dose: 17.2 mg Sertraline HCl (Sertraline Hcl 50 Mg Tablet) 50 mg PO BEDTIME [facility] Last Admin: 07/21/23 20:37 Dose: 50 mg Trazodone HCl (Trazodone Hcl 100 Mg Tablet) 100 mg PO BEDTIME [facility] Last Admin: 07/21/23 20:37 Dose: 100 mg Trazodone HCl (Trazodone Hcl 50 Mg Tablet) 50 mg PO BEDTIME MRX1 PRN PRN Reason: Insomnia Last Admin: 07/12/23 20:55 Dose: 50 mg Allergies Allergies Allergy/AdvReac Type Severity Reaction Status Date / Time oxycodone [From Percocet] Allergy Severe Rash Verified 06/19/23 16:32 Assessment & Plan Assessment & Plan (1) Depression with suicidal ideation: Status: Acute Code(s): F32.A - Depression, unspecified; R45.851 - Suicidal ideations (2) Alcohol use disorder in remission: Status: Acute Code(s): F10.91 - Alcohol use, unspecified, in remission (3) Autism spectrum disorder: Status: Acute Code(s): F84.0 - Autistic disorder (4) PTSD (post-traumatic stress disorder): Status: Acute Code(s): F43.10 - Post-traumatic stress disorder, unspecified Plan 33 yo female, hx of recurrent major depression, severe, r/o bipolar disorder, PTSD, autism spectrum disorder, possible ADHD, alcohol use disorder in remission. Pt comes from a residential program where she will complete a year in August. She had a recent medicine change and believes this increased her SI/intensity of sx. She presents to have her regime re-established and stabilized. Plan: [facility] for [facility] sent as pt does not recall what trials she has had to make medication changes. Full milieu encouraged Collect residential resources for pt to explore Coping skills work Aftercare/OP planning 07/10/23 Increase Sertraline to 50 mg daily Wellbutrin 75 mg a.m. 07/11/23 Continue current regime and plan of care Later in the day, received DC Summary from [facility]- Trials included Prazosin, Trileptal, Wellbutrin, Trazodone, Vistaril, Melatonin. 07/12/23 cont plan of care abilify wellbutrin 07/13/2023 Continue plan of care patient feeling somewhat more stable does feel fragile would benefit from DBT type skills and trauma informed therapy 07/14/23 Increase Wellbutrin to 150 mg XL a.m. Increase Prazosin to 3 mg hs 07/15/23 Continue current regime and plan of care. Assist pt in transition- she is informed today that [facility] from their program. 07/16/23 Continue current regime and plan of care. 07/17/23 Increase Hydroxyzine to 50 mg tid prn Seroquel 25 mg HS Increase Trileptal to 300 mg bid 07/18/23 Continue current regime and plan of care 07/19/23 continue current treatment plan 07/20/23 contiue treatmetn regimen 07/21/23 Increase Prazosin to 4 mg HS 07/22/23 Risperdal 0.25 mg prn for grounding assistance (trial) Patient educated on: medication risk/benefits and therapeutic strategies Informed Consent: understands Reason for continued inpatient stay Substantial Risk for: rapid decompensation Time Spent With Patient Time: Total time managing care of this patient today ____ minutes.
[2023-07-22] MEDS: Prazosin HCL 1 MG CAPSULE 4 MG PO (21:37)
[2023-07-22] MEDS: traZODone HCL 100 MG TABLET PO (21:37)
[2023-07-22] MEDS: QUEtiapine Fumarate 25 MG TABLET PO (21:37)
[2023-07-22] MEDS: Sennosides 8.6 MG TABLET 17.2 MG PO (21:38)
[2023-07-22] MEDS: Sertraline HCL 50 MG TABLET PO (21:38)
[2023-07-23 08:05] VITALS: BP 108/71; PULSE 85; RESP 18; TEMP 34.3; O2SAT 97
[2023-07-23] MEDS: Docusate Sodium 100 MG CAPSULE PO ×2 (08:11→20:00)
[2023-07-23] MEDS: ARIPiprazole 2 MG TABLET PO (08:11)
[2023-07-23] MEDS: OXcarbazepine 300 MG TABLET PO ×2 (08:11→20:00)
[2023-07-23] MEDS: buPROPion HCl XL 150 MG TAB.ER.24H PO (08:11)
--- NOTE | 2023-07-23 13:02 | P.PNPSI_ITS ---
Subjective Subjective Date of Service: 07/23/23 Reason For Visit: Recurrent major depression,SI,EToh use d/o,Cannabi Subjective Notes: Conditional Voluntary Healthcare Proxy: No Guardianship: No Medical Problems Affecting Mental Status: No Interim History: Pt discussed referral to [facility]. I am just anxious about what is next. Discussed visions of self-harm, connecting with peers as they are struggling in community she reports. Sleep is improved she reports. Pt able to co-lead group last evening. Given positive feedback from peers/team and feeling a sense of accomplishment she r eports. Hopes to volunteer with [facility] upon discharge. Medication Compliance: Yes Side effects from medications: No Attending Groups: Yes Review of Systems Acute medical concerns: No Medical Review of Systems: unchanged Mental Status Exam Mental Status Exam Patient Appearance: Appropriate Patient Orientation: Person, Place, Time and Situation Level of Consciousness: Alert Patient Behavior: Appropriate, Talkative and Good Eye Contact Mood Description: Constricted Affect Description: Constricted Patient Cognition Impaired: No Ability to Follow Directions: Good Speech Pattern: Spontaneous Speech Memory Description: Intact Hallucinations: None Delusions: Not Present Thought Process: Rumination Thought Content: positive for Perseveration and positive for Suicidal Ideation (denies) Depressive Symptoms: Low Self Esteem Judgement: Fair Diagnostics Vital Signs (24Hr): Vital Signs - 24 hr 07/22/23 18:00 07/23/23 08:05 Temperature 97.8 F 93.7 F L Pulse Rate 89 85 Respiratory Rate 18 18 Blood Pressure 124/79 108/71 Pulse Oximetry 97 Oxygen Delivery Method Room Air Room Air BMI result Body Mass Index 43.8 Labs 07/07/23 20:56 07/07/23 17:15 Medications Medications Current Medications Acetaminophen (Acetaminophen 325 Mg Tablet) 650 mg PO Q6H PRN PRN Reason: Headache/Pain Mild Scale (1-3) Last Admin: 07/17/23 17:44 Dose: 650 mg Al Hydroxide/Mg Hydroxide (Magnesium Hydrox/Alum Hydrox 30 Ml Oral.Susp) 30 ml PO Q6H PRN PRN Reason: Heartburn/Nausea Albuterol Sulfate (Albuterol Sulfate 90 Mcg 8 Gm Inhaler) 2 puff INHALE Q4H PRN PRN Reason: shortness of breath or wheezing Aripiprazole (Aripiprazole 2 Mg Tablet) 2 mg PO DAILY [facility] Last Admin: 07/23/23 08:11 Dose: 2 mg Bisacodyl (Bisacodyl 5 Mg Tablet.Dr) 10 mg PO DAILY PRN PRN Reason: Constipation Bupropion HCl (Bupropion Hcl Xl 150 Mg Tab.Er.24h) 150 mg PO DAILY YOSHI Last Admin: 07/23/23 08:11 Dose: 150 mg Docusate Sodium (Docusate Sodium 100 Mg Capsule) 100 mg PO BID YOSHI Last Admin: 07/23/23 08:11 Dose: 100 mg Hydroxyzine HCl (Hydroxyzine Hcl 50 Mg Tablet) 50 mg PO TID PRN PRN Reason: Anxiety Last Admin: 07/22/23 21:39 Dose: 50 mg Magnesium Hydroxide (Milk Of Magnesia 30 Ml Oral.Susp) 30 ml PO DAILY PRN PRN Reason: Constipation Nicotine Polacrilex (Nicotine Polacrilex Lozenge 4 Mg Lozenge) 4 mg BUCCAL Q2H PRN PRN Reason: Nicotine Cravings Last Admin: 07/09/23 16:58 Dose: 4 mg Oxcarbazepine (Oxcarbazepine 300 Mg Tablet) 300 mg PO BID YOSHI Last Admin: 07/23/23 08:11 Dose: 300 mg Prazosin HCl (Prazosin Hcl 1 Mg Capsule) 4 mg PO BEDTIME YOSHI; Protocol Last Admin: 07/22/23 21:37 Dose: 4 mg Quetiapine Fumarate (Quetiapine Fumarate 25 Mg Tablet) 25 mg PO BEDTIME YOSHI Last Admin: 07/22/23 21:37 Dose: 25 mg Risperidone (Risperidone 0.25 Mg Tablet) 0.25 mg PO TID PRN PRN Reason: grounding assistance Senna (Sennosides 8.6 Mg Tablet) 17.2 mg PO BEDTIME YOSHI Last Admin: 07/22/23 21:38 Dose: 17.2 mg Sertraline HCl (Sertraline Hcl 50 Mg Tablet) 50 mg PO BEDTIME YOSHI Last Admin: 07/22/23 21:38 Dose: 50 mg Trazodone HCl (Trazodone Hcl 100 Mg Tablet) 100 mg PO BEDTIME YOSHI Last Admin: 07/22/23 21:37 Dose: 100 mg Trazodone HCl (Trazodone Hcl 50 Mg Tablet) 50 mg PO BEDTIME MRX1 PRN PRN Reason: Insomnia Last Admin: 07/12/23 20:55 Dose: 50 mg Allergies Allergies Allergy/AdvReac Type Severity Reaction Status Date / Time oxycodone [From Percocet] Allergy Severe Rash Verified 06/19/23 16:32 Assessment & Plan Assessment & Plan (1) Depression with suicidal ideation: Status: Acute Code(s): F32.A - Depression, unspecified; R45.851 - Suicidal ideations (2) Alcohol use disorder in remission: Status: Acute Code(s): F10.91 - Alcohol use, unspecified, in remission (3) Autism spectrum disorder: Status: Acute Code(s): F84.0 - Autistic disorder (4) PTSD (post-traumatic stress disorder): Status: Acute Code(s): F43.10 - Post-traumatic stress disorder, unspecified Plan 33 yo female, hx of recurrent major depression, severe, r/o bipolar disorder, PTSD, autism spectrum disorder, possible ADHD, alcohol use disorder in remission. Pt comes from a residential program where she will complete a year in August. She had a recent medicine change and believes this increased her SI/intensity of sx. She presents to have her regime re-established and stabilized. Plan: [facility] for [facility] sent as pt does not recall what trials she has had to make medication changes. Full milieu encouraged Collect residential resources for pt to explore Coping skills work Aftercare/OP planning 07/10/23 Increase Sertraline to 50 mg daily Wellbutrin 75 mg a.m. 07/11/23 Continue current regime and plan of care Later in the day, received DC Summary from [place]- Trials included Prazosin, Trileptal, Wellbutrin, Trazodone, Vistaril, Melatonin. 07/12/23 cont plan of care abilify wellbutrin 07/13/2023 Continue plan of care patient feeling somewhat more stable does feel fragile would benefit from DBT type skills and trauma informed therapy 07/14/23 Increase Wellbutrin to 150 mg XL a.m. Increase Prazosin to 3 mg hs 07/15/23 Continue current regime and plan of care. Assist pt in transition- she is informed today that [facility] has discharged her from their program. 07/16/23 Continue current regime and plan of care. 07/17/23 Increase Hydroxyzine to 50 mg tid prn Seroquel 25 mg HS Increase Trileptal to 300 mg bid 07/18/23 Continue current regime and plan of care 07/19/23 continue current treatment plan 07/20/23 contiue treatmetn regimen 07/21/23 Increase Prazosin to 4 mg HS 07/23/23 Diagnostics 07/24 Discharge planning Patient educated on: therapeutic strategies Informed Consent: understands Reason for continued inpatient stay Substantial Risk for: rapid decompensation Time Spent With Patient Time: Total time managing care of this patient today ____ minutes.
[2023-07-23 19:58] VITALS: BP 118/72; PULSE 91; TEMP 36.4
[2023-07-23] MEDS: QUEtiapine Fumarate 25 MG TABLET PO (20:00)
[2023-07-23] MEDS: Prazosin HCL 1 MG CAPSULE 4 MG PO (20:00)
[2023-07-23] MEDS: traZODone HCL 100 MG TABLET PO (20:00)
[2023-07-23] MEDS: Sertraline HCL 50 MG TABLET PO (20:00)
[2023-07-23] MEDS: hydrOXYzine HCL 50 MG TABLET PO (20:00)
[2023-07-23] MEDS: Sennosides 8.6 MG TABLET 17.2 MG PO (20:00)
[2023-07-24 07:00] VITALS: BMI 44.2
[2023-07-24 08:00] VITALS: BP 127/68; PULSE 88; RESP 18; TEMP 36.1; O2SAT 98
[2023-07-24] MEDS: ARIPiprazole 2 MG TABLET PO (08:57)
[2023-07-24] MEDS: buPROPion HCl XL 150 MG TAB.ER.24H PO (08:57)
[2023-07-24] MEDS: OXcarbazepine 300 MG TABLET PO ×2 (08:57→20:08)
[2023-07-24] MEDS: Docusate Sodium 100 MG CAPSULE PO ×2 (08:57→20:08)
--- NOTE | 2023-07-24 18:18 | P.PNPSI_ITS ---
Subjective Subjective Date of Service: 07/24/23 Reason For Visit: Recurrent major depression,SI,EToh use d/o,Cannabi Subjective Notes: Conditional Voluntary Healthcare Proxy: No Guardianship: No Medical Problems Affecting Mental Status: No Interim History: Pt called [facility] with [facility] to assess for admission. They encouraged her to call in the a.m. Asks for a room change, difficult to sleep as room-mate is restless at night. Discussed anxiety about moving to the next step More grief today regarding the loss of [facility]. Medication Compliance: Yes Side effects from medications: No Attending Groups: Yes Review of Systems Acute medical concerns: No Medical Review of Systems: unchanged Mental Status Exam Mental Status Exam Patient Appearance: Appropriate Patient Orientation: Person, Place, Time and Situation Level of Consciousness: Alert Patient Behavior: Appropriate, Talkative and Good Eye Contact Mood Description: Constricted Affect Description: Constricted Patient Cognition Impaired: No Ability to Follow Directions: Good Speech Pattern: Spontaneous Speech Memory Description: Intact Hallucinations: None Delusions: Not Present Thought Process: Rumination Thought Content: positive for Perseveration and positive for Suicidal Ideation (denies) Depressive Symptoms: Low Self Esteem Judgement: Fair Diagnostics Vital Signs (24Hr): Vital Signs - 24 hr 07/23/23 19:58 07/24/23 08:00 Temperature 97.6 F 97 F Pulse Rate 91 88 Respiratory Rate 18 Blood Pressure 118/72 127/68 Pulse Oximetry 98 Oxygen Delivery Method Room Air BMI result Body Mass Index 44.2 Labs 07/07/23 20:56 07/07/23 17:15 Medications Medications Current Medications Acetaminophen (Acetaminophen 325 Mg Tablet) 650 mg PO Q6H PRN PRN Reason: Headache/Pain Mild Scale (1-3) Last Admin: 07/17/23 17:44 Dose: 650 mg Al Hydroxide/Mg Hydroxide (Magnesium Hydrox/Alum Hydrox 30 Ml Oral.Susp) 30 ml PO Q6H PRN PRN Reason: Heartburn/Nausea Albuterol Sulfate (Albuterol Sulfate 90 Mcg 8 Gm Inhaler) 2 puff INHALE Q4H PRN PRN Reason: shortness of breath or wheezing Aripiprazole (Aripiprazole 2 Mg Tablet) 2 mg PO DAILY [facility] Last Admin: 07/24/23 08:57 Dose: 2 mg Bisacodyl (Bisacodyl 5 Mg Tablet.Dr) 10 mg PO DAILY PRN PRN Reason: Constipation Bupropion HCl (Bupropion Hcl Xl 150 Mg Tab.Er.24h) 150 mg PO DAILY YOS[facility] Last Admin: 07/24/23 08:57 Dose: 150 mg Docusate Sodium (Docusate Sodium 100 Mg Capsule) 100 mg PO BID YOSHI Last Admin: 07/24/23 08:57 Dose: 100 mg Hydroxyzine HCl (Hydroxyzine Hcl 50 Mg Tablet) 50 mg PO TID PRN PRN Reason: Anxiety Last Admin: 07/23/23 20:00 Dose: 50 mg Magnesium Hydroxide (Milk Of Magnesia 30 Ml Oral.Susp) 30 ml PO DAILY PRN PRN Reason: Constipation Nicotine Polacrilex (Nicotine Polacrilex Lozenge 4 Mg Lozenge) 4 mg BUCCAL Q2H PRN PRN Reason: Nicotine Cravings Last Admin: 07/09/23 16:58 Dose: 4 mg Oxcarbazepine (Oxcarbazepine 300 Mg Tablet) 300 mg PO BID YOSHI Last Admin: 07/24/23 08:57 Dose: 300 mg Prazosin HCl (Prazosin Hcl 1 Mg Capsule) 4 mg PO BEDTIME YOSHI; Protocol Last Admin: 07/23/23 20:00 Dose: 4 mg Quetiapine Fumarate (Quetiapine Fumarate 25 Mg Tablet) 25 mg PO BEDTIME [facility]OS[facility] Last Admin: 07/23/23 20:00 Dose: 25 mg Risperidone (Risperidone 0.25 Mg Tablet) 0.25 mg PO TID PRN PRN Reason: grounding assistance Senna (Sennosides 8.6 Mg Tablet) 17.2 mg PO BEDTIME YOSHI Last Admin: 07/23/23 20:00 Dose: 17.2 mg Sertraline HCl (Sertraline Hcl 50 Mg Tablet) 50 mg PO BEDTIME YOSHI Last Admin: 07/23/23 20:00 Dose: 50 mg Trazodone HCl (Trazodone Hcl 100 Mg Tablet) 100 mg PO BEDTIME YOSHI Last Admin: 07/23/23 20:00 Dose: 100 mg Trazodone HCl (Trazodone Hcl 50 Mg Tablet) 50 mg PO BEDTIME MRX1 PRN PRN Reason: Insomnia Last Admin: 07/12/23 20:55 Dose: 50 mg Allergies Allergies Allergy/AdvReac Type Severity Reaction Status Date / Time oxycodone [From Percocet] Allergy Severe Rash Verified 06/19/23 16:32 Assessment & Plan Assessment & Plan (1) Depression with suicidal ideation: Status: Acute Code(s): F32.A - Depression, unspecified; R45.851 - Suicidal ideations (2) Alcohol use disorder in remission: Status: Acute Code(s): F10.91 - Alcohol use, unspecified, in remission (3) Autism spectrum disorder: Status: Acute Code(s): F84.0 - Autistic disorder (4) PTSD (post-traumatic stress disorder): Status: Acute Code(s): F43.10 - Post-traumatic stress disorder, unspecified Plan 33 yo female, hx of recurrent major depression, severe, r/o bipolar disorder, PTSD, autism spectrum disorder, possible ADHD, alcohol use disorder in remission. Pt comes from a residential program where she will complete a year in August. She had a recent medicine change and believes this increased her SI/in tensity of sx. She presents to have her regime re-established and stabilized. Plan: [facility] for [facility] sent as pt does not recall what trials she has had to make medication changes. Full milieu encouraged Collect residential resources for pt to explore Coping skills work Aftercare/OP planning 07/10/23 Increase Sertraline to 50 mg daily Wellbutrin 75 mg a.m. 07/11/23 Continue current regime and plan of care Later in the day, received DC Summary from [place]- Trials included Prazosin, Trileptal, Wellbutrin, Trazodone, Vistaril, Melatonin. 07/12/23 cont plan of care abilify wellbutrin 07/13/2023 Continue plan of care patient feeling somewhat more stable does feel fragile would benefit from DBT type skills and trauma informed therapy 07/14/23 Increase Wellbutrin to 150 mg XL a.m. Increase Prazosin to 3 mg hs 07/15/23 Continue current regime and plan of care. Assist pt in transition- she is informed today that [facility] has discharged her from their program. 07/16/23 Continue current regime and plan of care. 07/17/23 Increase Hydroxyzine to 50 mg tid prn Seroquel 25 mg HS Increase Trileptal to 300 mg bid 07/18/23 Continue current regime and plan of care 07/19/23 continue current treatment plan 07/20/23 contiue treatmetn regimen 07/21/23 Increase Prazosin to 4 mg HS 07/23/23 Diagnostics 07/24 Discharge planning 07/24/23 Continue current regime and plan of care Patient educated on: therapeutic strategies Informed Consent: understands Reason for continued inpatient stay Substantial Risk for: rapid decompensation Time Spent With Patient Time: Total time managing care of this patient today ____ minutes.
[2023-07-24 19:59] VITALS: BP 137/69; PULSE 101; TEMP 36.4
[2023-07-24] MEDS: Prazosin HCL 1 MG CAPSULE 4 MG PO (20:07)
[2023-07-24] MEDS: Sertraline HCL 50 MG TABLET PO (20:07)
[2023-07-24] MEDS: hydrOXYzine HCL 50 MG TABLET PO (20:08)
[2023-07-24] MEDS: QUEtiapine Fumarate 25 MG TABLET PO (20:08)
[2023-07-24] MEDS: Sennosides 8.6 MG TABLET 17.2 MG PO (20:08)
[2023-07-24] MEDS: traZODone HCL 100 MG TABLET PO (20:08)
[2023-07-24] MEDS: Albuterol Sulfate 90 MCG 8 GM INHALER 2 PUFF INHALE (20:55)
[2023-07-25 08:00] VITALS: BP 119/63; PULSE 91; RESP 18; TEMP 36.2; O2SAT 98
[2023-07-25 08:06] LABS: MANUAL DIFF FLAG NO
[2023-07-25 08:09] LABS: Basophils Percent Auto 0.5 % (0-2); Eosinophils Absolute Auto 0.1 X10*3/uL (0.0-0.4); Eosinophils Percent Auto 1.5 % (0-4); Hematocrit 38.7 % (37.0-47.0); Hemoglobin 12.3 g/dl (12.0-16.0); Imm Gran Abs Auto 0.04 X10*3/uL (0.00-0.03); Imm Gran Pct Auto 0.5 % (0.0-0.4); Lymphocytes Absolute Auto 3.4 X10*3/uL (1.2-4.9); Lymphocytes Percent Auto 38.8 % (20-40); Mean Corpuscular HGB Conc 31.8 g/dl (31.0-35.0); Mean Corpuscular Hemoglobin 26.7 pg (27.0-33.0); Mean Corpuscular Volume 84.1 fL (80.0-98.0); Mean Platelet Volume 8.7 fL (9.4-12.3); Monocytes Absolute Auto 0.5 X10*3/uL (0.1-1.2); Monocytes Percent Auto 6.1 % (2-11); Neutrophils Absolute Auto 4.6 x10*3/uL (2.0-8.3); Neutrophils Percent Auto 52.6 % (45-73); Platelet Count 271 X10*3/uL (160-400); Red Cell Distribution Width 14.1 % (11.0-16.0); White Blood Count 8.7 X10*3/uL (4.8-10.8)
[2023-07-25 08:40] LABS: Alanine Aminotransferase 18 U/L (0-31); Alkaline Phosphatase 88 U/L (39-117); Anion Gap 14 (12-20); Aspartate Amino Transferase 14 U/L (5-31); Bilirubin Total 0.2 mg/dL (0.0-1.0); Blood Urea Nitrogen 11 mg/dL (9-16); Calcium 9.6 mg/dL (8.4-10.2); Carbon Dioxide 25 mmol/L (22-29); Chloride 105 mmol/L (96-108); Creatinine Clr Calc Pharmacy 132.7; Estimated Glomerular Filt Rate > 60; Glucose Random 124 mg/dL (60-115); Potassium 3.8 mmol/L (3.3-5.1); Sodium 140 mmol/L (135-145); Total Protein 6.8 g/dL (6.5-8.0)
[2023-07-25 08:44] LABS: Estimated Average Glucose 105 mg/dL; Hemoglobin A1c % 5.3 % (<6.0)
[2023-07-25 09:28] LABS: Thyroid Stimulating Hormone 2.77 uIU/mL (0.32-4.0)
[2023-07-25] MEDS: OXcarbazepine 300 MG TABLET PO (09:36)
[2023-07-25] MEDS: ARIPiprazole 2 MG TABLET PO (09:36)
[2023-07-25] MEDS: buPROPion HCl XL 150 MG TAB.ER.24H PO (09:36)
[2023-07-25] MEDS: Docusate Sodium 100 MG CAPSULE PO (09:36)
--- NOTE | 2023-07-25 10:24 | P.PNPSI_ITS ---
Subjective Subjective Reason For Visit: Recurrent major depression,SI,EToh use d/o,Cannabi Diagnostics Vital Signs (24Hr): Vital Signs - 24 hr 07/24/23 19:59 07/25/23 08:00 Temperature 97.6 F 97.2 F Pulse Rate 101 H 91 Respiratory Rate 18 Blood Pressure 137/69 119/63 Pulse Oximetry 98 Oxygen Delivery Method Room Air BMI result Body Mass Index 44.2 Labs 07/25/23 07:50 07/25/23 07:50 Labs: Laboratory Results - last 48 hr 07/25/23 07/25/23 07/25/23 07:50 07:50 07:50 WBC 8.7 RBC 4.60 Hgb 12.3 Hct 38.7 MCV 84.1 MCH 26.7 L MCHC 31.8 RDW 14.1 Plt Count 271 MPV 8.7 L Immature Gran % (Auto) 0.5 H Neut % (Auto) 52.6 Lymph % (Auto) 38.8 [place] % (Auto) 6.1 Eos % (Auto) 1.5 Baso % (Auto) 0.5 Lymph # (Auto) 3.4 [place] # (Auto) 0.5 Eos # (Auto) 0.1 Baso # (Auto) 0.0 Abs Immat Gran (auto) 0.04 H Absolute Neuts (auto) 4.6 Absolute Nucleated RBC 0.000 Nucleated RBC % (auto) 0.0 Sodium 140 Potassium 3.8 Chloride 105 Carbon Dioxide 25 Anion Gap 14 BUN 11 Creatinine 0.73 Estim Creat Clear Calc 132.7 Estimated GFR > 60 Random Glucose 124 H Estimat Average Glucose 105 Hemoglobin A1c % 5.3 Calcium 9.6 Total Bilirubin 0.2 AST 14 ALT 18 Alkaline Phosphatase 88 Total Protein 6.8 Albumin 4.0 TSH 2.77 Medications Medications Current Medications Acetaminophen (Acetaminophen 325 Mg Tablet) 650 mg PO Q6H PRN PRN Reason: Headache/Pain Mild Scale (1-3) Last Admin: 07/17/23 17:44 Dose: 650 mg Al Hydroxide/Mg Hydroxide (Magnesium Hydrox/Alum Hydrox 30 Ml Oral.Susp) 30 ml PO Q6H PRN PRN Reason: Heartburn/Nausea Albuterol Sulfate (Albuterol Sulfate 90 Mcg 8 Gm Inhaler) 2 puff INHALE Q4H PRN PRN Reason: shortness of breath or wheezing Last Admin: 07/24/23 20:55 Dose: 2 puff Aripiprazole (Aripiprazole 2 Mg Tablet) 2 mg PO DAILY [facility] Last Admin: 07/25/23 09:36 Dose: 2 mg Bisacodyl (Bisacodyl 5 Mg Tablet.Dr) 10 mg PO DAILY PRN PRN Reason: Constipation Bupropion HCl (Bupropion Hcl Xl 150 Mg Tab.Er.24h) 150 mg PO DAILY [facility] Last Admin: 07/25/23 09:36 Dose: 150 mg Docusate Sodium (Docusate Sodium 100 Mg Capsule) 100 mg PO BID YOSHI Last Admin: 07/25/23 09:36 Dose: 100 mg Hydroxyzine HCl (Hydroxyzine Hcl 50 Mg Tablet) 50 mg PO TID PRN PRN Reason: Anxiety Last Admin: 07/24/23 20:08 Dose: 50 mg Magnesium Hydroxide (Milk Of Magnesia 30 Ml Oral.Susp) 30 ml PO DAILY PRN PRN Reason: Constipation Nicotine Polacrilex (Nicotine Polacrilex Lozenge 4 Mg Lozenge) 4 mg BUCCAL Q2H PRN PRN Reason: Nicotine Cravings Last Admin: 07/09/23 16:58 Dose: 4 mg Oxcarbazepine (Oxcarbazepine 300 Mg Tablet) 300 mg PO BID [facility] Last Admin: 07/25/23 09:36 Dose: 300 mg Prazosin HCl (Prazosin Hcl 1 Mg Capsule) 4 mg PO BEDTIME YOSHI; Protocol Last Admin: 07/24/23 20:07 Dose: 4 mg Quetiapine Fumarate (Quetiapine Fumarate 25 Mg Tablet) 25 mg PO BEDTIME YOSHI Last Admin: 07/24/23 20:08 Dose: 25 mg Risperidone (Risperidone 0.25 Mg Tablet) 0.25 mg PO TID PRN PRN Reason: grounding assistance Senna (Sennosides 8.6 Mg Tablet) 17.2 mg PO BEDTIME YOSHI Last Admin: 07/24/23 20:08 Dose: 17.2 mg Sertraline HCl (Sertraline Hcl 50 Mg Tablet) 50 mg PO BEDTIME YOSHI Last Admin: 07/24/23 20:07 Dose: 50 mg Trazodone HCl (Trazodone Hcl 100 Mg Tablet) 100 mg PO BEDTIME YOS[facility] Last Admin: 07/24/23 20:08 Dose: 100 mg Trazodone HCl (Trazodone Hcl 50 Mg Tablet) 50 mg PO BEDTIME MRX1 PRN PRN Reason: Insomnia Last Admin: 07/12/23 20:55 Dose: 50 mg Allergies Allergies Allergy/AdvReac Type Severity Reaction Status Date / Time oxycodone [From Percocet] Allergy Severe Rash Verified 06/19/23 16:32 Assessment & Plan Assessment & Plan (1) Depression with suicidal ideation: Status: Acute Code(s): F32.A - Depression, unspecified; R45.851 - Suicidal ideations (2) Alcohol use disorder in remission: Status: Acute Code(s): F10.91 - Alcohol use, unspecified, in remission (3) Autism spectrum disorder: Status: Acute Code(s): F84.0 - Autistic disorder (4) PTSD (post-traumatic stress disorder): Status: Acute Code(s): F43.10 - Post-traumatic stress disorder, unspecified Plan 33 yo female, hx of recurrent major depression, severe, r/o bipolar disorder, PTSD, autism spectrum disorder, possible ADHD, alcohol use disorder in remission. Pt comes from a residential program where she will complete a year in August. She had a recent medicine change and believes this increased her SI/intensity of sx. She presents to have her regime re-established and stabilized. Plan: [facility] for [facility] sent as pt does not recall what trials she has had to make medication changes. Full milieu encouraged Collect residential resources for pt to explore Coping skills work Aftercare/OP planning 07/10/23 Increase Sertraline to 50 mg daily Wellbutrin 75 mg a.m. 07/11/23 Continue current regime and plan of care Later in the day, received DC Summary from Home- Trials included Prazosin, Trileptal, Wellbutrin, Trazodone, Vistaril, Melatonin. 07/12/23 cont plan of care abilify wellbutrin 07/13/2023 Continue plan of care patient feeling somewhat more stable does feel fragile would benefit from DBT type skills and trauma informed therapy 07/14/23 Increase Wellbutrin to 150 mg XL a.m. Increase Prazosin to 3 mg hs 07/15/23 Continue current regime and plan of care. Assist pt in transition- she is informed today that [facility] has discharged her from their program. 07/16/23 Continue current regime and plan of care. 07/17/23 Increase Hydroxyzine to 50 mg tid prn Seroquel 25 mg HS Increase Trileptal to 300 mg bid 07/18/23 Continue current regime and plan of care 07/19/23 continue current treatment plan 07/20/23 contiue treatmetn regimen 07/21/23 Increase Prazosin to 4 mg HS 07/23/23 Diagnostics 07/24 Discharge planning 07/24/23 Continue current regime and plan of care Time Spent With Patient Time: Total time managing care of this patient today ____ minutes.
[2023-07-25] MEDS: hydrOXYzine HCL 50 MG TABLET PO (16:10)
--- NOTE | 2023-07-25 16:30 | PM.PSYDC ---
DS: Providers Provider Date of Service: 07/25/23 Date of admission: 07/08/23 16:51 Date of discharge: 07/25/23 Primary care physician: Unknown Physician Admitting clinician: Callie Ochoa Attending physician on admission: Soy Perez Consults: 07/18/23 11:30 Addiction Medicine Routine Consulting Provider: Addiction Covering Reason for consultation: Cravings for alcohol; Recovery coaching need Has provider been notified: No Attending physician on discharge: Soy Perez Discharging clinician: Callie Ochoa DS: Diagnosis Discharge Diagnosis (1) Depression with suicidal ideation: Status: Resolved (2) Alcohol use disorder in remission: Status: Acute (3) Autism spectrum disorder: Status: Acute (4) PTSD (post-traumatic stress disorder): Status: Acute DS: Medications Discharge Medications Home Medications: Previous Rx's Medication Instructions Recorded albuterol sulfate 90 mcg/actuation 2 puff inhalation Q4-6H PRN 07/25/23 aerosol inhaler shortness of breath or wheezing #1 inhaler aripiprazole 2 mg tablet 2 mg PO DAILY #30 tabs 07/25/23 atorvastatin 10 mg tablet 10 mg PO BEDTIME #30 tabs 07/25/23 bupropion HCl 150 mg 24 hr tablet, 150 mg PO DAILY #30 tabs 07/25/23 extended release docusate sodium 100 mg capsule 100 mg PO BID #60 caps 07/25/23 hydroxyzine HCl 50 mg tablet 50 mg PO TID PRN Anxiety #90 tabs 07/25/23 nicotine (polacrilex) 4 mg buccal 4 mg buccal Q2H PRN Nicotine 07/25/23 lozenge Cravings #60 ea oxcarbazepine 300 mg tablet 300 mg PO BID #60 tabs 07/25/23 prazosin 2 mg capsule 4 mg PO BEDTIME #60 caps 07/25/23 quetiapine 25 mg tablet 25 mg PO BEDTIME #30 tabs 07/25/23 sennosides 8.6 mg tablet (Senna 17.2 mg PO BEDTIME #30 tabs 07/25/23 Lax) sertraline 50 mg tablet 50 mg PO BEDTIME #30 tabs 07/25/23 trazodone 100 mg tablet 100 mg PO BEDTIME #30 tabs 07/25/23 trazodone 100 mg tablet 100 mg PO BEDTIME #30 tabs 07/25/23 Mental Status Exam Mental Status Exam Patient Appearance: Appropriate Patient Orientation: Person, Place, Time and Situation Level of Consciousness: Alert Patient Behavior: Appropriate, Talkative and Good Eye Contact Mood Description: Constricted Affect Description: Constricted Patient Cognition Impaired: No Ability to Follow Directions: Good Speech Pattern: Spontaneous Speech Memory Description: Intact Hallucinations: None Delusions: Not Present Thought Process: Rumination Thought Content: positive for Perseveration and positive for Suicidal Ideation (denies) Depressive Symptoms: Low Self Esteem Judgement: Fair Data Data Completed and Pending Completed studies during hospitalization [Text1]: 07/25/23 07/25/23 07/25/23 07:50 07:50 07:50 WBC 8.7 RBC 4.60 Hgb 12.3 Hct 38.7 MCV 84.1 MCH 26.7 L MCHC 31.8 RDW 14.1 Plt Count 271 MPV 8.7 L Immature Gran % (Auto) 0.5 H Neut % (Auto) 52.6 Lymph % (Auto) 38.8 [place] % (Auto) 6.1 Eos % (Auto) 1.5 Baso % (Auto) 0.5 Lymph # (Auto) 3.4 [place] # (Auto) 0.5 Eos # (Auto) 0.1 Baso # (Auto) 0.0 Abs Immat Gran (auto) 0.04 H Absolute Neuts (auto) 4.6 Absolute Nucleated RBC 0.000 Nucleated RBC % (auto) 0.0 Sodium 140 Potassium 3.8 Chloride 105 Carbon Dioxide 25 Anion Gap 14 BUN 11 Creatinine 0.73 Estim Creat Clear Calc 132.7 Estimated GFR > 60 Random Glucose 124 H Estimat Average Glucose 105 Hemoglobin A1c % 5.3 Calcium 9.6 Total Bilirubin 0.2 AST 14 ALT 18 Alkaline Phosphatase 88 Total Protein 6.8 Albumin 4.0 TSH 2.77 DS: Summary Hospital Course Hospital Course: Admission to adult psychiatry for exacerbation of depression with SI. Pt is one year sober 06/24/23. She has been at the [facility] for 10 months and will be leaving in August. She believes SI occurred due to an abrupt medication change in out patient prior to admission. She was experiencing nightmares, SIBS. She affirms the stress of the upcoming transition in August, the potential for homelessness and feels a lack of support at the residence. Medications were reviewed and adjusted. Pt was encouraged to utilize the milieu to process her concerns and re-enforce coping skills. Addictions worked with her to support ongoing recovery. During the admission, Pattie chose to precipitously discharge pt without explanation of rationale. The team worked with pt to access resources. She will discharge to crisis stabilization with resources to work with her on her next step in treatment. Time spent discussing smoking cessation with patient: 3 to 10 minutes Status at Discharge Functional status at discharge: independent ambulation Overall status at discharge: patient is back to baseline Time Spent with Patient Time attestation: Total time managing care of this patient today ____ minutes. Time spent: Greater than 30 minutes Discharge Plan Discharge Anticipated Discharge Date/Time: 07/25/23 18:16 Patient Disposition: Xfer Other Discharge Diagnosis: PTSD Recurrent Major Depression Autism Spectrum Disorder Alcohol Use Disorder, Sober 13 months Referrals: [facility] (Psychiatry) [Other] - 1 Week (SW will contact [facility] regarding hospital discharge appointment for psychiatry) Laine Beltran (therapist): [facility] [Other] - 08/01/23 10:00 am (Hospital discharge appointment with therapist Appointment in person at [facility]) Physician,Unknown J [Primary Care Provider] - 1 Week Discharge Medications: New quetiapine 25 mg Tablet 25 mg PO BEDTIME Qty: 30 0RF sennosides [Senna Lax] 8.6 mg Tablet 17.2 mg PO BEDTIME Qty: 30 0RF atorvastatin 10 mg Tablet 10 mg PO BEDTIME Qty: 30 0RF hydroxyzine HCl 50 mg Tablet 50 mg PO TID PRN (Reason: Anxiety) Qty: 90 0RF oxcarbazepine 300 mg Tablet 300 mg PO BID Qty: 60 0RF docusate sodium 100 mg Capsule 100 mg PO BID Qty: 60 0RF sertraline 50 mg Tablet 50 mg PO BEDTIME Qty: 30 0RF nicotine (polacrilex) 4 mg Lozenge 4 mg buccal Q2H PRN (Reason: Nicotine Cravings) Qty: 60 0RF bupropion HCl 150 mg Tablet Extended Release 24 Hr 150 mg PO DAILY Qty: 30 0RF trazodone 100 mg tablet 100 mg PO BEDTIME Qty: 30 0RF prazosin 2 mg capsule 4 mg PO BEDTIME Qty: 60 0RF Continued trazodone 100 mg tablet 100 mg PO BEDTIME Qty: 30 0RF albuterol sulfate 90 mcg/actuation HFA aerosol inhaler 2 puff inhalation Q4-6H PRN (Reason: shortness of breath or wheezing) Qty: 1 0RF aripiprazole 2 mg tablet 2 mg PO DAILY Qty: 30 0RF Discontinued oxcarbazepine 150 mg tablet 150 mg PO BID sertraline 25 mg tablet 25 mg PO BEDTIME hydroxyzine HCl 25 mg tablet 25 mg PO TID PRN (Reason: Anxiety) prazosin 2 mg capsule 2 mg PO BEDTIME Discharge Orders: Discharge Order (Routine); Ordered 07/25/23 Ordered By: Callie Ochoa Diet: Advance to usual diet Activity on Discharge: As tolerated Stand Alone Forms: Patient Portal Discharge page, Community Support Care Plan Goals: Mood and Behavioral Stabilization Sobriety Health Concerns: Mood and Behavioral Stabilization Sobriety Plan of Treatment: Attend scheduled appointments Take medications as directed Assessment: Pt interviewed prior to discharge and found to be fully oriented and without SI/HI. Pt has insight and demonstrates good judgment in terms of wanting to pursue treatment. Pt is not in imminent risk of harm to self or others and has a safety plan that includes presenting to the closest ER or calling 911 if feeling unsafe Pt has been observed closely by nursing and unit staff throughout admission. Pt has not engaged in any behaviors that suggest dangerousness to self or others and has demonstrated appropriate behaviors and impulse control. Discharge Date/Time: 07/25/23 17:20
== END 2023-07-25 17:20 | disposition other institution (70) | DRG 751 ==
LOC: HO.ED 07-08 02:12 → HO.PM5 07-08 17:03
PROVIDERS: Physician Assistant Medical; Admitting Provider Clinical Nurse Specialist Psychiatric/Mental Health, Adult; Emergency Provider Internal Medicine; Visit Provider Clinical Nurse Specialist Psychiatric/Mental Health, Adult
DX: F33.9 Major depressive disorder, recurrent, unspecified (principal); R45.851 Suicidal ideations; F10.21 Alcohol dependence, in remission; F17.210 Nicotine dependence, cigarettes, uncomplicated; F84.0 Autistic disorder; F43.10 Post-traumatic stress disorder, unspecified; Z71.6 Tobacco abuse counseling; Z20.822 Contact with and (suspected) exposure to COVID-19; Z79.899 Other long term (current) drug therapy
CPT/HCPCS: 36415; 80053; 80061; 80143; 80179; 80307; 81003; 81025; 82607; 82746; 83036; 83735; 84439; 84443; 85025; 87635; 93005; 99285; S9485

== ENCOUNTER → 2023-07-07 18:15 | Outpatient (BNV) | payer OTHER, SELFPAY | PROVIDERS: Emergency Provider Internal Medicine; Visit Provider Internal Medicine Cardiovascular Disease | DX: I49.9 Cardiac arrhythmia, unspecified (principal) | CPT/HCPCS: 93010 ==

== ENCOUNTER → 2023-07-08 16:51 | Outpatient (BNV) | payer OTHER, SELFPAY | PROVIDERS: Admitting Provider Clinical Nurse Specialist Psychiatric/Mental Health, Adult; Emergency Provider Internal Medicine; Visit Provider Psychiatry & Neurology Psychiatry | DX: F33.2 Major depressive disorder, recurrent severe without psychotic features (principal); R45.851 Suicidal ideations; F10.91 Alcohol use, unspecified, in remission; F84.0 Autistic disorder; F43.10 Post-traumatic stress disorder, unspecified | CPT/HCPCS: 99231 ==

== ENCOUNTER → 2023-07-08 16:51 | Outpatient (BNV) | payer OTHER, SELFPAY | PROVIDERS: Admitting Provider Clinical Nurse Specialist Psychiatric/Mental Health, Adult; Emergency Provider Internal Medicine; Visit Provider Clinical Nurse Specialist Psychiatric/Mental Health, Adult | DX: F33.2 Major depressive disorder, recurrent severe without psychotic features (principal); R45.851 Suicidal ideations; F10.91 Alcohol use, unspecified, in remission; F84.0 Autistic disorder; F43.11 Post-traumatic stress disorder, acute | CPT/HCPCS: 90792; 99231; 99232; 99239 ==